=== PATIENT | male | born 1940 | race Caucasian/White ===

== ENCOUNTER 2022-07-23 11:38 | Observation (INO) | payer MEDICARE, SELFPAY ==
[2022-07-23] VITALS (11 sets, daily range): BP systolic 115–175; BP diastolic 71–117; PULSE 50–72; RESP 14–30; TEMP 35.1–37.2; O2SAT 90–97; BMI 29.8; BMI 34.6
--- NOTE | 2022-07-23 12:04 | ED_ITS ---
HPI - General Adult General Time Seen by Provider: 12:04 Date Seen: 07/23/22 Chief complaint: Shortness of Breath/Dyspnea Stated complaint: Tight artery in neck Time Seen by Provider: 07/23/22 11:40 Source: patient, family, RN notes reviewed and old records reviewed Mode of arrival: ambulatory Limitations: no limitations History of Present Illness HPI narrative: Patient is an 81-year-old male brought in with primary complaint of shortness of breath. His called family member stating that he was not doing well today. He historically is out in his garden all the time and did not even go out to the garden today. He has had some intermittent neck pain, sounds of the right is greater than left but it has been intermittent. No fevers or cough noted. He was at his [id number]'s house whom is present this weekend on Friday and he did not complain of anything. They found out from his that he has been having some shortness of breath for a couple of weeks now. He has not noted increased weight or edema. He does state his left leg will sometimes swell after he had knee surgery but it always goes down. No one has noted him being ill, he has had no complaints of it. No chest pain per se, no abdominal symptoms. Patient has never been a smoker, has never been diagnosed with lung problems such as COPD, no history of congestive heart failure or prior cardiac issues per patient and family. Related Data Allergies Allergy/AdvReac Type Severity Reaction Status Date / Time No Known Drug Allergies Allergy Verified 07/23/22 12:01 Review of Systems Status of ROS: Reports: 10 or more systems reviewed and unremarkable except as noted in History and below PFSH PFS Social History Smoking Status: Never smoker Do you use any of these nicotine containing products: None Second hand tobacco smoke exposure: Yes How often do you have a drink containing alcohol: monthly or less AUDIT-C Alcohol total score: 1 Non-prescribed substance use: denies use Exam Const: Vital Signs, click to edit/add: Vital Signs - 24 hr 07/23/22 11:49 07/23/22 12:15 07/23/22 12:34 Temperature 95.2 F L Pulse Rate [Apical ] 68 72 62 Respiratory Rate 30 H 24 24 Blood Pressure [Le ft Upper Arm] 175/110 H 146/102 H 141/102 H Pulse Oximetry 90 97 97 Oxygen Delivery Me thod Room Air Nasal Cannula Nasal Cannula Oxygen Flow Rate 4 4 07/23/22 13:30 07/23/22 14:30 Temperature Pulse Rate [Apical ] 62 55 L Respiratory Rate 25 H Blood Pressure [Le ft Upper Arm] 147/99 H 140/117 H Pulse Oximetry 95 95 Oxygen Delivery Me thod Nasal Cannula Nasal Cannula Oxygen Flow Rate 2 Documenting provider has reviewed patient's vital signs: yes Common normals: oriented x3, no limitations, healthy appearing, alert and well nourished General appearance: cooperative and in distress (Tachypneic, diaphoretic) moderate Nutritional appearance: obese HENMT: Common normals: normocephalic, head/scalp atraumatic, external ears normal, nasal mucous membranes and turbinates normal, moist oral mucous membranes, oropharynx normal, dentition normal and gingiva normal Head and scalp: normocephalic and atraumatic Nose: nasal mucous membranes and turbinates normal General ear: hearing grossly impaired (Is hard of hearing baseline per family) External ear: external ears normal Eye: Common normals: PERRL, EOMs intact bilaterally, conjunctivae normal and no scleral icterus General eye: normal appearance of both eyes Conjunctiva: conjunctiva(e) normal Pupil: PERRL Neck & C-Spine: Common normals: full ROM, no lymphadenopathy, supple, no meningeal signs and thyroid normal Thyroid: thyroid normal Other: Neck thick, difficult to assess jugular venous distension Lymph: Lymphatic: no lymphadenopathy noted Chest: Common normals: inspection of chest normal and palpation of chest normal Resp: Other: Is tachypneic, has poor air entry with distant breath sounds, prolonged expiratory phase, some diffuse but distant end-expiratory wheezing. Overall lung sounds are tight. He did get a DuoNeb and I Re auscultated after that. Posteriorly he has some basilar crackles, Still's prolonged expiratory phase and some occasional tight sounding expiratory breath sounds. Some wheezing within this. Cardio: Common normals: regular rate, regular rhythm, S1 normal heart sound, S2 normal heart sound, no gallops, no clicks and no murmurs Rate: regular rate Rhythm: regular rhythm Heart sounds: S1 normal and S2 normal GI: Common normals: Normal to inspection, nondistended, normoactive bowel sounds present, soft to palpation, non-tender, no hepatosplenomegaly, no masses and no bruits Palpation: soft and no hepatosplenomegaly Extremity: Common normals: full ROM, normal capillary refill, no joint enlargement, no clubbing, cyanosis or edema and no calf tenderness General: edema (One to 2+ pretibial pitting edema) Neuro: Common normals: oriented x3, CN's II-XII intact bilaterally, moves all extremities, no focal motor deficits, no sensory deficits noted and gait normal Sensorium/orientation: alert Meningeal signs: no meningeal signs Course Course Hospital Course: Patient was diaphoretic quite tachypneic on arrival. He was in obvious respiratory distress. Initial thoughts were COPD exacerbation, pneumonia with respiratory difficulties, cardiac issues. He was given a DuoNeb immediately, did supplement with oxygen initially but will see how he does without. Am going to try to get a portable chest x-ray quickly. Will consider IV Lasix as well. Reevaluation(s) Reevaluation #1: Patient is going to have chest CT PE protocol to better delineate what is happening. Nursing staff noted when he went to get up to go to the bathroom after 40 mg IV Lasix, coming back he was at 85-86% on room air. We will maintain him on oxygen. They did give him his 2nd DuoNeb. I think mostly the oxygen helps him. He is making a lot of urine from 40 mg IV Lasix. Chest x-ray is not definitive as far as if this could be infiltrate versus edema. He is no longer tachypneic or diaphoretic. Will do a followup troponin just to ensure no changes at appropriate time interval. Time: 14:04 Consultations Consultation #1: Have spoken with hospitalists Dr. Winkler and Dr. Francois. Will be obtaining the 3:20 p.m. troponin, Dr. Francois is the evening hospitalists and does agree to assume care. Patient is actively urinating multiple times, he is already feeling a bit better. We will need to see if he is going to require oxygen on discharge, will need updated echo and troponins followed. Vital Signs Vital signs: Initial Vital Signs Temperature 95.2 F L 07/23/22 11:49 Temperature Source Temporal Artery Scan 07/23/22 11:49 Pulse Rate 68 07/23/22 11:49 Pulse Rhythm 07/23/22 11:49 Respiratory Rate 30 H 07/23/22 11:49 Blood Pressure 175/110 H 07/23/22 11:49 Blood Pressure Mean 131 07/23/22 11:49 Pulse Oximetry 90 07/23/22 11:49 Oxygen Delivery Method 07/23/22 11:49 Vital Signs Temperature 95.2 F L 07/23/22 11:49 Pulse Rate 68 07/23/22 11:49 Respiratory Rate 30 H 07/23/22 11:49 Blood Pressure 175/110 H 07/23/22 11:49 Pulse Oximetry 90 07/23/22 11:49 Oxygen Delivery Method 07/23/22 11:49 Temperature 95.2 F L 07/23/22 11:49 Pulse Rate 55 L 07/23/22 14:30 Respiratory Rate 25 H 07/23/22 14:30 Blood Pressure 140/117 H 07/23/22 14:30 Pulse Oximetry 95 07/23/22 14:30 Oxygen Delivery Method 07/23/22 14:30 Oxygen Flow Rate 2 07/23/22 13:30 Medical Decision Making Lab Data Lab results reviewed: Yes I reviewed the patient's lab results Labs: Lab Results 07/23/22 07/23/22 07/23/22 Range/Units 12:20 12:20 12:20 WBC 8.69 (4.50-11.00) K/uL RBC 4.90 (4.30-5.90) m/uL Hgb 12.1 L (13.5-17.5) gm/dL Hct 39.9 (37.0-53.0) % MCV 81 (80-100) fL MCH 25 L (26-34) pg MCHC 30 L (32-36) gm/dL RDW Coeff of [place] 15.8 H (11.5-15.5) % Plt Count 166 (140-440) K/uL Neut % (Auto) 73.8 H (42.0-72.0) % Lymph % (Auto) 14.6 L (20-44) % [place] % (Auto) 10.2 (0.0-11.0) % Eos % (Auto) 0.8 (0.0-7.0) % Baso % (Auto) 0.5 (0.0-3.0) % Neut # (Auto) 6.40 (1.7-7.0) K/uL Lymph # (Auto) 1.30 (0.90-2.90) K/uL [place] # (Auto) 0.90 (0.00-0.90) K/UL Eos # (Auto) 0.07 (0.00-0.50) K/uL Baso # (Auto) 0.04 (0.00-0.30) K/uL Abs Immat Gran (auto) 0.01 (0.00-0.30) K/uL ESR 2 (2-15) mm/hr D-Dimer Quant (PE/DVT) 0.80 H (0.00-0.50) ug/ml Sodium (135-149) mmol/L Potassium (3.6-5.1) mmol/L Chloride (96-114) mmol/L Carbon Dioxide (20-32) mmol/L BUN (7-30) mg/dL Creatinine (0.5-1.5) mg/dL Estimated Creat Clear Estimated GFR ml/min Glucose (60-115) mg/dL Lactate (0.5-1.9) mmol/L Calcium (8.4-10.6) mg/dL Total Bilirubin (0.1-1.5) mg/dL AST (12-35) U/L ALT (4-50) U/L Alkaline Phosphatase (40-150) U/L C-Reactive Protein (0.5-1.0) mg/dL NT-Pro-B Natriuret Pep (0-450) PG/mL Total Protein (6.0-8.3) g/dL Albumin (3.3-5.0) g/dL SARS-CoV-2 (PCR) (Negative) POC Troponin I (0.01-0.04) ng/ml 07/23/22 07/23/22 07/23/22 Range/Units 12:20 12:20 12:20 WBC (4.50-11.00) K/uL RBC (4.30-5.90) m/uL Hgb (13.5-17.5) gm/dL Hct (37.0-53.0) % MCV (80-100) fL MCH (26-34) pg MCHC (32-36) gm/dL RDW Coeff of [place] (11.5-15.5) % Plt Count (140-440) K/uL Neut % (Auto) (42.0-72.0) % Lymph % (Auto) (20-44) % [place] % (Auto) (0.0-11.0) % Eos % (Auto) (0.0-7.0) % Baso % (Auto) (0.0-3.0) % Neut # (Auto) (1.7-7.0) K/uL Lymph # (Auto) (0.90-2.90) K/uL [place] # (Auto) (0.00-0.90) K/UL Eos # (Auto) (0.00-0.50) K/uL Baso # (Auto) (0.00-0.30) K/uL Abs Immat Gran (auto) (0.00-0.30) K/uL ESR (2-15) mm/hr D-Dimer Quant (PE/DVT) (0.00-0.50) ug/ml Sodium 137 (135-149) mmol/L Potassium 4.6 (3.6-5.1) mmol/L Chloride 103 (96-114) mmol/L Carbon Dioxide 23 (20-32) mmol/L BUN 28 (7-30) mg/dL Creatinine 1.1 (0.5-1.5) mg/dL Estimated Creat Clear 49.24 Estimated GFR 67 ml/min Glucose 164 H (60-115) mg/dL Lactate 1.0 (0.5-1.9) mmol/L Calcium 9.1 (8.4-10.6) mg/dL Total Bilirubin 0.4 (0.1-1.5) mg/dL AST 105 H (12-35) U/L ALT 136 H (4-50) U/L Alkaline Phosphatase 85 (40-150) U/L C-Reactive Protein < 0.5 L (0.5-1.0) mg/dL NT-Pro-B Natriuret Pep 1660 H (0-450) PG/mL Total Protein 7.0 (6.0-8.3) g/dL Albumin 4.4 (3.3-5.0) g/dL SARS-CoV-2 (PCR) (Negative) POC Troponin I 0.01 (0.01-0.04) ng/ml 08/23/22 08/23/22 Range/Units 12:25 15:15 WBC (4.50-11.00) K/uL RBC (4.30-5.90) m/uL Hgb (13.5-17.5) gm/dL Hct (37.0-53.0) % MCV (80-100) fL MCH (26-34) pg MCHC (32-36) gm/dL RDW Coeff of [place] (11.5-15.5) % Plt Count (140-440) K/uL Neut % (Auto) (42.0-72.0) % Lymph % (Auto) (20-44) % [place] % (Auto) (0.0-11.0) % Eos % (Auto) (0.0-7.0) % Baso % (Auto) (0.0-3.0) % Neut # (Auto) (1.7-7.0) K/uL Lymph # (Auto) (0.90-2.90) K/uL [place] # (Auto) (0.00-0.90) K/UL Eos # (Auto) (0.00-0.50) K/uL Baso # (Auto) (0.00-0.30) K/uL Abs Immat Gran (auto) (0.00-0.30) K/uL ESR (2-15) mm/hr D-Dimer Quant (PE/DVT) (0.00-0.50) ug/ml Sodium (135-149) mmol/L Potassium (3.6-5.1) mmol/L Chloride (96-114) mmol/L Carbon Dioxide (20-32) mmol/L BUN (7-30) mg/dL Creatinine (0.5-1.5) mg/dL Estimated Creat Clear Estimated GFR ml/min Glucose (60-115) mg/dL Lactate (0.5-1.9) mmol/L Calcium (8.4-10.6) mg/dL Total Bilirubin (0.1-1.5) mg/dL AST (12-35) U/L ALT (4-50) U/L Alkaline Phosphatase (40-150) U/L C-Reactive Protein (0.5-1.0) mg/dL NT-Pro-B Natriuret Pep (0-450) PG/mL Total Protein (6.0-8.3) g/dL Albumin (3.3-5.0) g/dL SARS-CoV-2 (PCR) Negative SARS-CoV-2 (Negative) POC Troponin I 0.01 (0.01-0.04) ng/ml Imaging Data Chest x-ray: Attestation: I have reviewed the pertinent imaging results. My impression: Chest x-ray my preliminary read with possible pulmonary venous congestion. Radiologist's impression: Patient: BLAKE MCGOWAN Facility:?[facility], [place] Patient ID:?[id number] Site Patient ID:?[id number]. Site :?[id number] Study:?XRay Chest port 1 view-07/23/2022 12:24:01 PM Ordering Physician:Porfirio Quintero Final Report: INDICATION: Dyspnea and wheezing COMPARISON: None TECHNIQUE: Single-view study FINDINGS: TUBES AND LINES: None. HEART AND MEDIASTINUM: Enlarged heart. LUNGS AND PLEURAL SPACES: Moderate diffuse bilateral multifocal process.Primary differential considerations are edema versus a diffuse inflammatory process. Consider atypical inflammatory process including COVID if clinically appropriate.Normal pleural spaces. OSSEOUS STRUCTURES: Age-appropriate appearance. No acute focal finding. IMPRESSION: Enlarged heart. Moderate diffuse bilateral multifocal process. Primary differentials are edema versus a diffuse inflammatory process. No pleural effusion. Dictated by José Miguel Tao MD @ 07/23/2022 1:05:06 PM (Electronic Signature) CT scan - chest: Attestation: I have reviewed the pertinent imaging results. Radiologist's impression: Patient: BLAKE MCGOWAN Facility:?[facility] [place] Patient ID:?[id number] Site Patient ID:?[id number]. Site :?[id number] Study:?CT Chest Angio PE 95cc ISOVUE 370-07/23/2022 2:24:19 PM Ordering Physician:Porfirio Quintero Final Report: INDICATION: Shortness of breath. COMPARISON: Chest radiograph 07/23/2022. TECHNIQUE: CT of the chest with 95 cc of Omnipaque 350 IV contrast. Coronal and sagittal reconstructions. 3D post processing was performed. FINDINGS: Mild cardiomegaly. Aneurysmal dilation of the ascending thoracic aorta measuring 4.6 cm in AP dimension. Coronary artery and aortic vascular calcifications. Normal caliber central pulmonary arteries. Evaluation of the pulmonary arteries is somewhat limited by motion artifact. No acute pulmonary embolism identified. Small pericardial effusion. No thoracic lymphadenopathy. The thyroid gland is normal in appearance. Moderate bilateral pleural effusions with associated compressive atelectasis. Interlobular septal thickening throughout the lungs likely due to edema. Small ground-glass opacities in the upper lobes may be infectious/inflammatory or due to edema. No pneumothorax. No pulmonary nodules identified. Diffuse bronchial wall thickening greatest in the lower lungs. No central endobronchial lesion. Probable motion artifact at the level of the gallbladder. Partially imaged low- attenuation lesions in both kidneys are likely cysts. The visualized upper abdomen is otherwise unremarkable. Sebaceous cyst in the anterior chest wall. The bones are within normal limits. IMPRESSION: 1. No acute pulmonary embolism identified, however evaluation is limited by motion artifact. 2. Mild cardiomegaly with small pericardial effusion. Aneurysmal dilation of the ascending thoracic aorta. 3. Moderate bilateral pleural effusions with evidence of interstitial edema. 4. Small ground-glass opacities in the upper lobes may be infectious/inflammatory or due to edema. Diffuse bronchial wall thickening. Please note that all CT scans at this facility use dose modulation, iterative reconstruction, and/or weight-based dosing when appropriate to reduce radiation dose to as low as reasonably achievable. Dictated by Bindu Pierre MD @ 07/23/2022 2:45:53 PM (Electronic Signature) ECG Data Attestation: I personally reviewed and interpreted this ECG as follows: (Significant artifact, sinus rhythm 74 beats per minute, left bundle branch block.) Prior ECG tracings: not available for review Critical Care Time Critical Care Time Critical Care Time: Yes Attestation: The patient required my highest level preparedness to intervene emergently and I personally spent this critical care time directly and personally managing the patient. This critical care time included: Obtaining a history; Examining the patient; Pulse oximetry; Ordering and reviewing of studies; Arranging urgent treatment with development of a management plan; Evaluation of patients response to treatment; Frequent reassessment discussions with other providers. This critical care time was performed to assess and manage the high probability of imminent life-threatening deterioration that could result in multiorgan failure. It was exclusive of separate billable procedures and treating other patients and teaching time. Total Critical Care Time in Minutes: 30 Discharge Plan Discharge Clinical Impression: Congestive heart failure, Hypoxia Patient Disposition: Admitted As Inpatient Condition: Improved Follow Up/Referrals: Provider,Not a Local [Primary Care Provider] -
--- NOTE | 2022-07-23 12:06 | CRLHL7_ITS ---
For Patients: As a result of the Century Cures Act, medical imaging exams and procedure reports are released immediately into your electronic medical record. You may view this report before your referring provider. If you have questions, please contact your health care provider. INDICATION: Dyspnea and wheezing COMPARISON: None TECHNIQUE: Single-view study FINDINGS: TUBES AND LINES: None. HEART AND MEDIASTINUM: Enlarged heart. LUNGS AND PLEURAL SPACES: Moderate diffuse bilateral multifocal process.Primary differential considerations are edema versus a diffuse inflammatory process. Consider atypical inflammatory process including COVID if clinically appropriate.Normal pleural spaces. OSSEOUS STRUCTURES: Age-appropriate appearance. No acute focal finding. IMPRESSION: Enlarged heart. Moderate diffuse bilateral multifocal process. Primary differentials are edema versus a diffuse inflammatory process. No pleural effusion. Dictated by José Miguel Tao MD @ 07/23/2022 1:05:06 PM (Electronically Signed)
[2022-07-23] MEDS: IPRAT-ALBUT 0.5-2.5 MG/3 ML NEB 1 NEB IH ×2 (12:17→13:10)
--- NOTE | 2022-07-23 12:27 | ED.NURSE ---
#18G IV established in [facility] by LESA Hussein. Labs drawn from this IV and sent to lab. EDGAR goncalves.
[2022-07-23 12:35] LABS: Basophils Absolute Auto 0.04 K/uL (0.00-0.30); Basophils Percent Auto 0.5 % (0.0-3.0); Eosinophils Absolute Auto 0.07 K/uL (0.00-0.50); Eosinophils Percent Auto 0.8 % (0.0-7.0); Hematocrit 39.9 % (37.0-53.0); Hemoglobin* 12.1 gm/dL (13.5-17.5); Immature Granulocytes Abs Auto 0.01 K/uL (0.00-0.30); Lymphocytes Percent Auto 14.6 % (20-44); Mean Corpuscular HGB Conc 30 gm/dL (32-36); Mean Corpuscular Hemoglobin 25 pg (26-34); Mean Corpuscular Volume 81 fL (80-100); Monocytes Percent Auto 10.2 % (0.0-11.0); Neutrophils Percent Auto 73.8 % (42.0-72.0); Platelet Count* 166 K/uL (140-440); RDW Coefficient of Variation % 15.8 % (11.5-15.5); Troponin, Point-of-Care* 0.01 ng/ml (0.01-0.04); White Blood Count* 8.69 K/uL (4.50-11.00)
[2022-07-23] MEDS: FUROSEMIDE 10 MG/ML inj 40 MG IVP (12:39)
[2022-07-23 12:51] LABS: Albumin* 4.4 g/dL (3.3-5.0); Chloride* 103 mmol/L (96-114); Slide Review Reflex No
[2022-07-23 12:52] LABS: Potassium* 4.6 mmol/L (3.6-5.1); Sodium* 137 mmol/L (135-149)
[2022-07-23 12:54] LABS: Alkaline Phosphatase* 85 U/L (40-150); Aspartate Amino Transferase* 105 U/L (12-35); Bilirubin Total* 0.4 mg/dL (0.1-1.5); Carbon Dioxide* 23 mmol/L (20-32); Creatinine* 1.1 mg/dL (0.5-1.5); Est. Creatinine Clearance* 49.24; Estimated Glomerular Filt Rate 67 ml/min
[2022-07-23 12:55] LABS: Alanine Aminotransferase* 136 U/L (4-50); Blood Urea Nitrogen* 28 mg/dL (7-30); Calcium* 9.1 mg/dL (8.4-10.6); Glucose* 164 mg/dL (60-115)
[2022-07-23 13:03] LABS: NT Pro B Type NatriureticPept* 1660 PG/mL (0-450)
[2022-07-23 13:05] LABS: C Reactive Protein* < 0.5 mg/dL (0.5-1.0)
--- NOTE | 2022-07-23 13:36 | CRLHL7_ITS ---
For Patients: As a result of the Century Cures Act, medical imaging exams and procedure reports are released immediately into your electronic medical record. You may view this report before your referring provider. If you have questions, please contact your health care provider. INDICATION: Shortness of breath. COMPARISON: Chest radiograph 07/23/2022. TECHNIQUE: CT of the chest with 95 cc of Omnipaque 350 IV contrast. Coronal and sagittal reconstructions. 3D post processing was performed. FINDINGS: Mild cardiomegaly. Aneurysmal dilation of the ascending thoracic aorta measuring 4.6 cm in AP dimension. Coronary artery and aortic vascular calcifications. Normal caliber central pulmonary arteries. Evaluation of the pulmonary arteries is somewhat limited by motion artifact. No acute pulmonary embolism identified. Small pericardial effusion. No thoracic lymphadenopathy. The thyroid gland is normal in appearance. Moderate bilateral pleural effusions with associated compressive atelectasis. Interlobular septal thickening throughout the lungs likely due to edema. Small ground-glass opacities in the upper lobes may be infectious/inflammatory or due to edema. No pneumothorax. No pulmonary nodules identified. Diffuse bronchial wall thickening greatest in the lower lungs. No central endobronchial lesion. Probable motion artifact at the level of the gallbladder. Partially imaged low-attenuation lesions in both kidneys are likely cysts. The visualized upper abdomen is otherwise unremarkable. Sebaceous cyst in the anterior chest wall. The bones are within normal limits. IMPRESSION: 1. No acute pulmonary embolism identified, however evaluation is limited by motion artifact. 2. Mild cardiomegaly with small pericardial effusion. Aneurysmal dilation of the ascending thoracic aorta. 3. Moderate bilateral pleural effusions with evidence of interstitial edema. 4. Small ground-glass opacities in the upper lobes may be infectious/inflammatory or due to edema. Diffuse bronchial wall thickening. Please note that all CT scans at this facility use dose modulation, iterative reconstruction, and/or weight-based dosing when appropriate to reduce radiation dose to as low as reasonably achievable. Dictated by Bindu Pierre MD @ 07/23/2022 2:45:53 PM (Electronically Signed)
[2022-07-23 14:02] LABS: SARS PCR* Negative SARS-CoV-2 (Negative)
[2022-07-23 14:27] LABS: Erythrocyte SedimentationRate* 2 mm/hr (2-15)
[2022-07-23 15:37] LABS: Troponin, Point-of-Care* 0.01 ng/ml (0.01-0.04)
--- NOTE | 2022-07-23 17:28 | PM.IMHP1 ---
Hospitalist- H&P: HPI History of Present Illness Date Seen: 07/23/22 Chief complaint: Tight artery in neck Narrative: Kota Canas is a 81 year old male who presents with several days of shortness of breath. Pt has no history of coronary disease. Today the shortness of breath which has been on exertion only became worse. The pt was brought to the emergency room tachypnic and mildly hypoxic. Pt was treated with supplemental oxygen and was found to have mild pulmonary edema on both chest x ray and CT of the chest. No signs of pneumonia or pulmonary embolism were noted. Pt was treated with IV lasix 40 mg with a good outpt and the pt's tachypnea and mild hypoxia both resolved. He also received duonebs. Pt is now breathing comfortably on room air. No chest pain. Pt does have chronic L sided neck pain dating back to a CVA in 2003. EKG upon arrival in the ED does show a left bundle branch block. No previous EKGs available for comparison but pt did have an echocardiogram in March 2019 showing EF of 61% with Severe Concentric LVH as well as Mild and trivial TR. Pt has had two negative troponin and has otherwise been stable on telemetry. BNP 1660. Review of Systems Status of ROS: Reports: 10 or more systems reviewed and unremarkable except as noted in History and below [facility] Medical History (Updated 07/23/22 @ 18:10 by Jun Francois MD) Abnormal LFTs Anemia Congestive heart failure CVA (cerebral vascular accident) Dilatation of thoracic aorta Hyperlipidemia Hyperlipidemia Hypertension Hypertension Left bundle branch block Pericardial effusion Peripheral vascular disease Retinal artery occlusion Stroke Surgical History H/O carotid endarterectomy History of knee replacement Social History Highest level of school completed/degree received: high school graduate Smoking Status: Never smoker Do you use any of these nicotine containing products: None Second hand tobacco smoke exposure: Yes How often do you have a drink containing alcohol: monthly or less AUDIT-C Alcohol total score: 1 Non-prescribed substance use: denies use Caffeine: Yes (4-5 cups a day) service: Yes Meds Home Medications and Allergies Home Medications Medication Instructions Recorded Confirmed Type metoprolol tartrate 50 mg tablet 50 mg PO BID 07/23/22 07/23/22 History (Lopressor) Home Medication Comments: Pt not sure of his home medications but review of his records show that he previously has been taking Atorvastatin 40 mg daily, Metoprolol 50 mg BID, Lisinopril/HCTZ 20/25 daily, Aspirin 81 mg daily and Doxasozin 4 mg daily Allergies Allergy/AdvReac Type Severity Reaction Status Date / Time No Known Drug Allergies Allergy Verified 07/23/22 12:01 Exam Narrative: Exam Narrative: EXAM GENERAL: Patient appears comfortable and well. Slight slurred speech from previous CVA. EYES: No scleral icterus. ENT: Tympanic membranes and oropharynx normal. Neck does show a previous carotid endarterectomy incision well healed on the right. THYROID: no thyroid nodules or thyromegaly. LYMPH: No supraclavicular or cervical lymphadenopathy. SKIN: Visible skin seen during exam normal or with benign process only. EXT: Trace lower extremity edema bilaterally. HEART: Regular rate and rhythm with no murmurs, rubs, or gallops. LUNGS: Minimal crackles bilaterally. ABD: Soft, non tender, non distended. PSYCH: Good eye contact, speech is not pressured. Const: Vital Signs, click to edit/add: Vital Signs - 24 hr 07/23/22 11:49 07/23/22 12:15 07/23/22 12:34 Temperature 95.2 F L Pulse Rate [Apical ] 68 72 62 Pulse Rate [Right Radial] Respiratory Rate 30 H 24 24 Blood Pressure [Le ft Upper Arm] 175/110 H 146/102 H 141/102 H Blood Pressure [Ri ght Arm] Pulse Oximetry 90 97 97 Oxygen Delivery Me thod Room Air Nasal Cannula Nasal Cannula Oxygen Flow Rate 4 4 07/23/22 13:30 07/23/22 14:30 07/23/22 16:15 Temperature Pulse Rate [Apical ] 62 55 L 61 Pulse Rate [Right Radial] Respiratory Rate 25 H 14 Blood Pressure [Le ft Upper Arm] 147/99 H 140/117 H 121/85 Blood Pressure [Ri ght Arm] Pulse Oximetry 95 95 95 Oxygen Delivery Me thod Nasal Cannula Nasal Cannula Room Air Oxygen Flow Rate 2 07/23/22 17:21 Temperature 99.0 F Pulse Rate [Apical ] Pulse Rate [Right Radial] 60 Respiratory Rate 20 Blood Pressure [Le ft Upper Arm] Blood Pressure [Ri ght Arm] 142/71 H Pulse Oximetry 95 Oxygen Delivery Me thod Room Air Oxygen Flow Rate Hospitalist - H&P: Result Labs Labs: Short CBC 07/23/22 Range/Units 12:20 WBC 8.69 (4.50-11.00) K/uL Hgb 12.1 L (13.5-17.5) gm/dL Hct 39.9 (37.0-53.0) % Plt Count 166 (140-440) K/uL BMP 07/23/22 12:20 Sodium 137 Potassium 4.6 Chloride 103 Carbon Dioxide 23 BUN 28 Creatinine 1.1 Glucose 164 H Calcium 9.1 Liver Function 07/23/22 Range/Units 12:20 Total Bilirubin 0.4 (0.1-1.5) mg/dL AST 105 H (12-35) U/L ALT 136 H (4-50) U/L Alkaline Phosphatase 85 (40-150) U/L Albumin 4.4 (3.3-5.0) g/dL ECG Interpretation: LBBB no other acute abnormalities Imaging CT scan - chest: Radiologist's impression: No pulmonary emboli Findings consistent with Pulmonary Edema Small Glass Opacities in the upper lobes Chest x-ray: Radiologist's impression: Cardiomegaly with pulmonary edema Assessment and Plan Assessment and plan (1) Congestive heart failure: Status: Acute Assessment and Plan: Pt has concerning findings on Echo from 2019. Pt diuresed well with 40 mg of IV Lasix. Will give an additional 20 mg orally now and observe outpt. Will place on a low sodium diet and follow I and O and Daily Wt. Pt's pulse is 60. Would not give any further betablocker tonight but did write for continuation in the am. Echocardiogram ordered. Pt tells me that he previously was on Lisinopril/HCTZ but has stopped it. We will see what his echo shows. Will place on tele and monitor his oxygen needs which are currently at Room Air. Repat CBC, CMP and BNP in the am. Continue ASA 81 mg daily. Pt is to be a full code. There are some Ground Glass Opacities in the upper lobes on CT. I do not believe these are infectious given his presentation and his normal WBC but will collect BC times two (2) Abnormal LFTs: Status: Chronic Assessment and Plan: Pt may have increased his LFTs due to mild fluid overload. I did note normal LFT's in 2019. Will repeat CMP in the am and consider ultrasound. Pt having no abd symptoms and no change in stools. (3) Left bundle branch block: Status: Chronic Assessment and Plan: I suspect that this is chronic but am unable to find any old EKG's for comparison. Pt has had two negative troponins and we will obtain a third. Pt will be placed on tele and will have an echo in the am. (4) Pericardial effusion: Status: Acute Assessment and Plan: No signs of cardiact tamponade. Will monitor vitals and plan for echo in the am. (5) Dilatation of thoracic aorta: Status: Acute Assessment and Plan: No signs of acute disection. Echo in the am. (6) Hypertension: Status: Chronic Assessment and Plan: Continue Metoprolol and follow up on echo results. (7) Hyperlipidemia: Status: Chronic Assessment and Plan: Continue Atorvastatin (8) Anemia: Status: Chronic Assessment and Plan: Stable dating back to 2019. Repeat CBC in am.
--- NOTE | 2022-07-23 17:29 | ED.NURSE ---
Pt transferred to M/S via w/c on , tolerated well. Updated daughter, America, with Pt status and M/S room, contact # for M/S nurse's station.
[2022-07-23] MEDS: FUROSEMIDE 40 MG TABLET 20 MG PO (19:01)
[2022-07-23 19:22] LABS: Magnesium* 1.9 mg/dL (1.5-2.6)
[2022-07-23 19:58] LABS: Troponin I* < 0.01 ng/mL (0.01-0.04)
[2022-07-23] MEDS: ATORVASTATIN CALCIUM 40 MG TABLET PO (21:37)
[2022-07-23] MEDS: METOPROLOL TARTRATE 50 MG TABLET PO (21:37)
--- NOTE | 2022-07-23 22:20 | PC.NURSE ---
Shift note; The pt has been pleasant and cooperative. Alert and oriented to self, place, and situations. He has been very hard of hearing- doesn't use hearing aid. The pt has been denying chest pain and short of breath at rest. The pt reported mild short of breath with exertion. The pt has been in RA with Spo2 in low 90s. The pt has been denying any pain or distress. Up ad nas. Using urinal
--- NOTE | 2022-07-24 06:12 | PC.NURSE ---
Shift Note : Pt pleasant and cooperative, VSS, afebrile, denies pain, LS dim with slight crackles in bilateral bases. Pt up ad nas in the room, denies SOB or dizziness.
[2022-07-24 07:00] VITALS: PULSE 53; RESP 18
[2022-07-24 07:11] LABS: Basophils Absolute Auto 0.04 K/uL (0.00-0.30); Basophils Percent Auto 0.5 % (0.0-3.0); Eosinophils Absolute Auto 0.15 K/uL (0.00-0.50); Hematocrit 36.8 % (37.0-53.0); Hemoglobin* 11.2 gm/dL (13.5-17.5); Immature Granulocytes Abs Auto 0.01 K/uL (0.00-0.30); Lymphocytes Absolute Auto 1.74 K/uL (0.90-2.90); Lymphocytes Percent Auto 23.1 % (20-44); Mean Corpuscular HGB Conc 30 gm/dL (32-36); Mean Corpuscular Hemoglobin 25 pg (26-34); Mean Corpuscular Volume 81 fL (80-100); Monocytes Percent Auto 13.7 % (0.0-11.0); Neutrophils Absolute Auto 4.56 K/uL (1.7-7.0); Neutrophils Percent Auto 60.6 % (42.0-72.0); Platelet Count* 143 K/uL (140-440); RDW Coefficient of Variation % 15.8 % (11.5-15.5); Red Blood Count 4.55 m/uL (4.30-5.90); White Blood Count* 7.53 K/uL (4.50-11.00)
[2022-07-24 07:31] LABS: Slide Review Reflex No
[2022-07-24 07:38] VITALS: BP 85/69; PULSE 56; RESP 18; TEMP 36.4; O2SAT 93
[2022-07-24 07:42] LABS: NT Pro B Type NatriureticPept* 1670 PG/mL (0-450)
[2022-07-24 07:56] VITALS: BP 143/76; PULSE 35
[2022-07-24 08:04] VITALS: BP 142/80
[2022-07-24 08:36] LABS: Chloride* 101 mmol/L (96-114); Sodium* 139 mmol/L (135-149)
[2022-07-24 08:39] LABS: Carbon Dioxide* 30 mmol/L (20-32); Est. Creatinine Clearance* 54.17; Estimated Glomerular Filt Rate 76 ml/min
[2022-07-24 08:40] LABS: Blood Urea Nitrogen* 26 mg/dL (7-30); Calcium* 9.1 mg/dL (8.4-10.6); Glucose* 116 mg/dL (60-115)
[2022-07-24] MEDS: TORSEMIDE 20 MG TABLET PO (08:42)
[2022-07-24] MEDS: ASPIRIN 81 MG TABLET EC PO (08:42)
[2022-07-24] MEDS: METOPROLOL TARTRATE 50 MG TABLET PO (08:42)
--- NOTE | 2022-07-24 10:11 | P.DS_ITS ---
DS: Providers Provider Date Seen: 07/24/22 Date of admission: 07/23/22 17:06 Primary care physician: Not a Local Provider Admitting Clinician: Jun Francois MD Attending Physician on discharge: Jun Francois MD Date of Discharge: 07/24/22 DS: Diagnosis Discharge Diagnosis (1) Congestive heart failure: Status: Acute Problem details: History of severe concentric LVH with heart failure with preserved ejection fraction. Current echo is pending. Clinically much better with diuresis overnight. Needs outpatient follow-up of dyspnea, volume status, electrolytes (2) LVH (left ventricular hypertrophy): Status: Acute Problem details: severe LVH on echo from March 2019 (3) Hypertension: Status: Chronic Problem details: Blood pressure has been fairly well-controlled here. Needs close outpatient follow-up in the context of LVH. (4) Anemia: Status: Chronic Problem details: No workup is done on this problem on this admission. (5) Medically noncompliant: Status: Acute Problem details: Patient has been not taking previously prescribed medications for blood pressure and hypertensive heart disease. He has not had regular medical follow-up in the last couple years. He left his previous physician because that physician had referred him to Cardiology for his heart disease, urology for his elevated PSA and urinary symptoms and suggested evaluation for sleep apnea and colonoscopy. Patient tells me that he did not want to deal with all these specialty consultations. In addition he has mild anemia which has not been evaluated. DS: Summary Hospital Course Hospital Course: 81-year-old male admitted to the hospital with dyspnea. Time of admission he was diaphoretic and hypoxic. Chest x-ray and chest CT showed evidence of pulmonary edema and small pleural effusions. With diuresis he reports his breathing is better, now back to normal. He is very anxious to go home. Status at Discharge Functional status at discharge: independent ambulation Overall status at discharge: patient is back to baseline Time Spent with Patient Time attestation: Total time spent providing and/or coordinating discharge services: 50 minutes Time spent: Greater than 30 minutes Exam Const: Vital Signs, click to edit/add: Vital Signs - 24 hr 07/23/22 11:49 07/23/22 12:15 07/23/22 12:34 Temperature 95.2 F L Pulse Rate Pulse Rate [Apical ] 68 72 62 Pulse Rate [Right Radial] Respiratory Rate 30 H 24 24 Blood Pressure [Le ft Upper Arm] 175/110 H 146/102 H 141/102 H Blood Pressure [Ri ght Arm] Pulse Oximetry 90 97 97 Oxygen Delivery Me thod Room Air Nasal Cannula Nasal Cannula Oxygen Flow Rate 4 4 07/23/22 13:30 07/23/22 14:30 07/23/22 16:15 Temperature Pulse Rate Pulse Rate [Apical ] 62 55 L 61 Pulse Rate [Right Radial] Respiratory Rate 25 H 14 Blood Pressure [Le ft Upper Arm] 147/99 H 140/117 H 121/85 Blood Pressure [Ri ght Arm] Pulse Oximetry 95 95 95 Oxygen Delivery Me thod Nasal Cannula Nasal Cannula Room Air Oxygen Flow Rate 2 07/23/22 17:21 07/23/22 18:38 07/23/22 20:06 Temperature 99.0 F 97.9 F Pulse Rate Pulse Rate [Apical ] Pulse Rate [Right Radial] 60 59 L Respiratory Rate 20 20 Blood Pressure [Le ft Upper Arm] Blood Pressure [Ri ght Arm] 142/71 H 133/73 Pulse Oximetry 95 91 Oxygen Delivery Me thod Room Air Room Air Room Air Oxygen Flow Rate 07/23/22 23:38 07/23/22 23:00 07/23/22 23:00 Temperature 97.5 F L Pulse Rate 54 L Pulse Rate [Apical ] Pulse Rate [Right Radial] 50 L 50 L Respiratory Rate 20 20 Blood Pressure [Le ft Upper Arm] Blood Pressure [Ri ght Arm] 115/79 Pulse Oximetry 90 Oxygen Delivery Me thod Room Air Oxygen Flow Rate 07/23/22 23:36 07/24/22 07:38 07/24/22 07:00 Temperature 97.6 F Pulse Rate Pulse Rate [Apical ] Pulse Rate [Right Radial] 56 L Respiratory Rate 18 18 Blood Pressure [Le ft Upper Arm] Blood Pressure [Ri ght Arm] 85/69 L Pulse Oximetry 90 93 Oxygen Delivery Me thod Room Air Room Air Oxygen Flow Rate 07/24/22 07:56 07/24/22 08:04 07/24/22 07:00 Temperature Pulse Rate 53 L Pulse Rate [Apical ] Pulse Rate [Right Radial] 35 L Respiratory Rate Blood Pressure [Le ft Upper Arm] Blood Pressure [Ri ght Arm] 143/76 H 142/80 H Pulse Oximetry Oxygen Delivery Me thod Oxygen Flow Rate DS: Data Data Completed and Pending Labs on day of discharge: Labs from last 24 hours 07/24/22 07/24/22 07/23/22 06:12 06:12 18:52 WBC 7.53 RBC 4.55 Hgb 11.2 L Hct 36.8 L MCV 81 MCH 25 L MCHC 30 L RDW Coeff of [place] 15.8 H Plt Count 143 Neut % (Auto) 60.6 Lymph % (Auto) 23.1 [place] % (Auto) 13.7 H Eos % (Auto) 2.0 Baso % (Auto) 0.5 Neut # (Auto) 4.56 Lymph # (Auto) 1.74 [place] # (Auto) 1.00 H Eos # (Auto) 0.15 Baso # (Auto) 0.04 Abs Immat Gran (auto) 0.01 ESR D-Dimer Quant (PE/DVT) Sodium 139 Potassium 4.0 Chloride 101 Carbon Dioxide 30 BUN 26 Creatinine 1.0 Estimated Creat Clear 54.17 Estimated GFR 76 Glucose 116 H Lactate Calcium 9.1 Magnesium Total Bilirubin AST ALT Alkaline Phosphatase Troponin I < 0.01 L C-Reactive Protein NT-Pro-B Natriuret Pep 1670 H Total Protein Albumin SARS-CoV-2 (PCR) POC Troponin I 07/23/22 07/23/22 07/23/22 15:15 12:25 12:20 WBC RBC Hgb Hct MCV MCH MCHC RDW Coeff of [place] Plt Count Neut % (Auto) Lymph % (Auto) [place] % (Auto) Eos % (Auto) Baso % (Auto) Neut # (Auto) Lymph # (Auto) [place] # (Auto) Eos # (Auto) Baso # (Auto) Abs Immat Gran (auto) ESR D-Dimer Quant (PE/DVT) Sodium Potassium Chloride Carbon Dioxide BUN Creatinine Estimated Creat Clear Estimated GFR Glucose Lactate Calcium Magnesium Total Bilirubin AST ALT Alkaline Phosphatase Troponin I C-Reactive Protein NT-Pro-B Natriuret Pep Total Protein Albumin SARS-CoV-2 (PCR) Negative SARS-CoV-2 POC Troponin I 0.01 0.01 07/23/22 07/23/22 07/23/22 12:20 12:20 12:20 WBC RBC Hgb Hct MCV MCH MCHC RDW Coeff of [place] Plt Count Neut % (Auto) Lymph % (Auto) [place] % (Auto) Eos % (Auto) Baso % (Auto) Neut # (Auto) Lymph # (Auto) [place] # (Auto) Eos # (Auto) Baso # (Auto) Abs Immat Gran (auto) ESR D-Dimer Quant (PE/DVT) 0.80 H Sodium 137 Potassium 4.6 Chloride 103 Carbon Dioxide 23 BUN 28 Creatinine 1.1 Estimated Creat Clear 49.24 Estimated GFR 67 Glucose 164 H Lactate 1.0 Calcium 9.1 Magnesium 1.9 Total Bilirubin 0.4 AST 105 H ALT 136 H Alkaline Phosphatase 85 Troponin I C-Reactive Protein < 0.5 L NT-Pro-B Natriuret Pep 1660 H Total Protein 7.0 Albumin 4.4 SARS-CoV-2 (PCR) POC Troponin I 07/23/22 07/23/22 12:20 12:20 WBC 8.69 RBC 4.90 Hgb 12.1 L Hct 39.9 MCV 81 MCH 25 L MCHC 30 L RDW Coeff of [place] 15.8 H Plt Count 166 Neut % (Auto) 73.8 H Lymph % (Auto) 14.6 L [place] % (Auto) 10.2 Eos % (Auto) 0.8 Baso % (Auto) 0.5 Neut # (Auto) 6.40 Lymph # (Auto) 1.30 [place] # (Auto) 0.90 Eos # (Auto) 0.07 Baso # (Auto) 0.04 Abs Immat Gran (auto) 0.01 ESR 2 D-Dimer Quant (PE/DVT) Sodium Potassium Chloride Carbon Dioxide BUN Creatinine Estimated Creat Clear Estimated GFR Glucose Lactate Calcium Magnesium Total Bilirubin AST ALT Alkaline Phosphatase Troponin I C-Reactive Protein NT-Pro-B Natriuret Pep Total Protein Albumin SARS-CoV-2 (PCR) POC Troponin I Imaging CT scan - chest: Radiologist's impression: [place] [address] Diagnostic Imaging Report Patient: Kota Canas MR#: [id number] : 1940 Acct:[id number] Loc: ED Service Date: 07/23/[address]: Ordering Physician: Ingrid Longo M.D. Date of Service: 07/23/22 Procedure(s): CT angio chest PE protocol Accession Number(s): [id number] cc: Provider,Not a Local ; Ingrid Longo M.D.~ For Patients:? As a result of the Century Cures Act, medical imaging exams and procedure reports are released immediately into your electronic medical record.? You may view this report before your referring provider.? If you have questions, please contact your health care provider. INDICATION: Shortness of breath. COMPARISON: Chest radiograph 07/23/2022. TECHNIQUE: CT of the chest with 95 cc of Omnipaque 350 IV contrast. Coronal and sagittal reconstructions. 3D post processing was performed. FINDINGS: Mild cardiomegaly. Aneurysmal dilation of the ascending thoracic aorta measuring 4.6 cm in AP dimension. Coronary artery and aortic vascular calcifications. Normal caliber central pulmonary arteries. Evaluation of the pulmonary arteries is somewhat limited by motion artifact. No acute pulmonary embolism identified. Small pericardial effusion. No thoracic lymphadenopathy. The thyroid gland is normal in appearance. Moderate bilateral pleural effusions with associated compressive atelectasis. Interlobular septal thickening throughout the lungs likely due to edema. Small ground-glass opacities in the upper lobes may be infectious/inflammatory or due to edema. No pneumothorax. No pulmonary nodules identified. Diffuse bronchial wall thickening greatest in the lower lungs. No central endobronchial lesion. Probable motion artifact at the level of the gallbladder. Partially imaged low-attenuation lesions in both kidneys are likely cysts. The visualized upper abdomen is otherwise unremarkable. Sebaceous cyst in the anterior chest wall. The bones are within normal limits. IMPRESSION: 1. No acute pulmonary embolism identified, however evaluation is limited by motion artifact. 2. Mild cardiomegaly with small pericardial effusion. Aneurysmal dilation of the ascending thoracic aorta. 3. Moderate bilateral pleural effusions with evidence of interstitial edema. 4. Small ground-glass opacities in the upper lobes may be infectious/inflammatory or due to edema. Diffuse bronchial wall thickening. Please note that all CT scans at this facility use dose modulation, iterative reconstruction, and/or weight-based dosing when appropriate to reduce radiation dose to as low as reasonably achievable. Dictated by Bindu Pierre MD @ 07/23/2022 2:45:53 PM Discharge Plan Discharge Disposition: Home, Self-Care Date of Admission: 07/23/22 17:06 Attending Provider on Discharge: Yomi Matson Primary Care Provider: Provider,Not a Local Condition: Improved Anticipated Discharge Date/Time: 07/24/22 16:00 Discharge Medications: New atorvastatin [Lipitor] 40 mg Tablet 40 mg PO HS Qty: 30 0RF potassium chloride 10 mEq Capsule, Extended Release 10 meq PO DAILY Qty: 30 0RF torsemide 20 mg Tablet 20 mg PO DAILY Qty: 30 0RF aspirin 81 mg Tablet,Delayed Release (Dr/Ec) 81 mg PO DAILY Qty: 100 0RF Continued metoprolol tartrate [Lopressor] 50 mg tablet 50 mg PO BID Discharge Orders: Discharge Order (Routine); Ordered 07/24/22 Ordered By: Yomi Matson Activity Restrictions/Additional Instructions: Check your weight every day at the same time of day. If your weight increases 2 lb in 1 day or 3 lb in a week call your doctor. Monitor for worsening symptoms of heart failure including worsening shortness of breath with activity or worsening shortness of breath when you lie down at night. See your doctor next week for recheck of your breathing, your blood pressure, your electrolytes and kidney function. As your previous Discussed with you there are a number of health concerns that may benefit from further evaluation. You can decide if you want to follow through with those as well. Activity Level: No Restrictions Discharge Diet: 2 gm Sodium Follow Up Appointments: Provider,Not a Local [Primary Care Provider] - (See your doctor next week to check your breathing, your blood test for your electrolytes and kidney function, your blood pressure and other health concerns) Forms: [employer] Info Instructions
[2022-07-24] MEDS: POTASSIUM CHLORIDE 10 MEQ CAPSULE ER PO (10:51)
[2022-07-24 11:15] VITALS: BP 126/73; PULSE 58; RESP 20; TEMP 36.3; O2SAT 92
--- NOTE | 2022-07-24 11:50 | NUTR.NU ---
RDN attempted to visit with patient x2, patient was unavailable on both attempts. RDN attempted to visit to provide diet education related to CHF. Patient was not available x2. RDN recommends patient follow-up as an outpatient for diet education.
--- NOTE | 2022-07-24 14:52 | PC.NURSE ---
End of Shift: Patient pleasant and cooperative. Patient is vitally stable, lungs with fine crackles, BS WNL, IV removed, catheter intact. Patient is independent in room. Patient denied any pain. Patient tolerating regular diet, urinating, and had 1 mod formed BM. Patient currently awaiting ECHO results to then be discharged.
== END 2022-07-24 16:08 | disposition home or self-care (01) ==
LOC: ED 15:48 → MEDSURG 17:06
PROVIDERS: Family Medicine; Admitting Provider Internal Medicine; Emergency Provider Family Medicine; Visit Provider Internal Medicine
DX: I50.23 Acute on chronic systolic (congestive) heart failure (principal); I11.0 Hypertensive heart disease with heart failure; R09.02 Hypoxemia; I31.3 Pericardial effusion (noninflammatory); I77.810 Thoracic aortic ectasia; J81.1 Chronic pulmonary edema; J90 Pleural effusion, not elsewhere classified; E78.5 Hyperlipidemia, unspecified; R79.89 Other specified abnormal findings of blood chemistry; I44.7 Left bundle-branch block, unspecified; D64.9 Anemia, unspecified; Z86.79 Personal history of other diseases of the circulatory system; I42.2 Other hypertrophic cardiomyopathy; Z91.14 Patient's other noncompliance with medication regimen; R06.82 Tachypnea, not elsewhere classified; R61 Generalized hyperhidrosis; G89.29 Other chronic pain; M54.2 Cervicalgia; Z79.01 Long term (current) use of anticoagulants; R01.1 Cardiac murmur, unspecified
CPT/HCPCS: 36415; 71045; 71260; 80048; 80053; 83605; 83735; 83880; 84484; 85025; 85379; 85651; 86140; 87040; 87635; 93005; 93306; 94640; 96374; 99284; 99285; 99291; G0378; A9270; J1940; Q9967

== ENCOUNTER 2022-07-29 15:35 | Outpatient (CLI) | payer MEDICARE, SELFPAY ==
[2022-07-29 16:01] LABS: Chloride Point of Care* 101 mmol/L (98-109); Sodium Point of Care* 140 mmol/L (138-146)
[2022-07-29 16:02] LABS: Basophils Absolute Auto 0.02 K/uL (0.00-0.30); Basophils Percent Auto 0.2 % (0.0-3.0); Blood Urea Nitrogen POC* 37 mg/dl (8-26); Carbon Dioxide Point of Care* 28 mmol/L (20-32); Creatinine Point of Care* 1.5 mg/dl (0.6-1.3); Eosinophils Absolute Auto 0.28 K/uL (0.00-0.50); Eosinophils Percent Auto 3.2 % (0.0-7.0); Glucose IStat Point of Care 117 mg/dl (60-115); Hematocrit 38.5 % (37.0-53.0); Hemoglobin* 11.9 gm/dL (13.5-17.5); Ionized Calcium Point of Care* 1.22 mmol/L (1.11-1.33); Lymphocytes Absolute Auto 1.98 K/uL (0.90-2.90); Lymphocytes Percent Auto 22.5 % (20-44); Mean Corpuscular HGB Conc 31 gm/dL (32-36); Mean Corpuscular Hemoglobin 25 pg (26-34); Mean Corpuscular Volume 80 fL (80-100); Monocytes Percent Auto 15.7 % (0.0-11.0); Neutrophils Absolute Auto 5.15 K/uL (1.7-7.0); Neutrophils Percent Auto 58.4 % (42.0-72.0); Platelet Count* 174 K/uL (140-440); Red Blood Count 4.79 m/uL (4.30-5.90); White Blood Count* 8.81 K/uL (4.50-11.00)
[2022-07-29 16:08] LABS: Slide Review Reflex No
[2022-07-29 16:21] LABS: Hemoglobin A1C* 6.3 % (0-5.6)
[2022-07-29 21:24] LABS: Albumin* 4.2 g/dL (3.3-5.0)
[2022-07-29 21:27] LABS: Alanine Aminotransferase* 30 U/L (4-50); Alkaline Phosphatase* 84 U/L (40-150); Aspartate Amino Transferase* 19 U/L (12-35); Bilirubin Direct* 0.3 mg/dL (0.0-0.5); Bilirubin Total* 0.3 mg/dL (0.1-1.5); Total Protein* 6.8 g/dL (6.0-8.3)
[2022-07-29 21:54] LABS: PSA Screen* 3.68 ng/mL (0.10-4.00)
== END 2022-07-29 15:36 | disposition home or self-care (01) ==
PROVIDERS: Visit Provider Family Medicine
DX: R79.89 Other specified abnormal findings of blood chemistry (principal); N40.0 Benign prostatic hyperplasia without lower urinary tract symptoms; I50.9 Heart failure, unspecified; I10 Essential (primary) hypertension; D64.9 Anemia, unspecified; E78.5 Hyperlipidemia, unspecified
CPT/HCPCS: 80076; 83036; 84153; 85025

== ENCOUNTER 2022-08-23 11:49 | Outpatient (CLI) | payer MEDICARE, SELFPAY ==
[2022-08-23 12:58] LABS: Cholesterol* 85 mg/dL (90-199); HDL Cholesterol* 35 mg/dL (>=40); LDL Cholesterol Calculated 33 mg/dL (<100); Triglycerides* 84 mg/dL (40-149)
[2022-08-23 13:07] LABS: NT Pro B Type NatriureticPept* 886 PG/mL (0-450)
== END 2022-08-23 11:50 | disposition home or self-care (01) ==
PROVIDERS: Visit Provider Internal Medicine Cardiovascular Disease
DX: I50.9 Heart failure, unspecified (principal); R79.89 Other specified abnormal findings of blood chemistry; I10 Essential (primary) hypertension
CPT/HCPCS: 80061; 83880

== ENCOUNTER 2022-08-30 14:19 | Outpatient (CLI) | payer MEDICARE, SELFPAY ==
[2022-08-30 22:02] LABS: Albumin* 4.3 g/dL (3.3-5.0)
[2022-08-30 22:04] LABS: Cholesterol* 83 mg/dL (90-199)
[2022-08-30 22:05] LABS: Alanine Aminotransferase* 18 U/L (4-50); Alkaline Phosphatase* 79 U/L (40-150); Aspartate Amino Transferase* 19 U/L (12-35); Bilirubin Direct* 0.2 mg/dL (0.0-0.5); Bilirubin Total* 0.2 mg/dL (0.1-1.5); HDL Cholesterol* 29 mg/dL (>=40); LDL Cholesterol Calculated 24 mg/dL (<100); Total Protein* 6.7 g/dL (6.0-8.3); Triglycerides* 148 mg/dL (40-149)
== END 2022-08-30 14:20 | disposition home or self-care (01) ==
PROVIDERS: Visit Provider Family Medicine
DX: I50.9 Heart failure, unspecified (principal); R79.89 Other specified abnormal findings of blood chemistry
CPT/HCPCS: 80061; 80076

== ENCOUNTER 2022-09-03 08:01 | Outpatient (CLI) | payer MEDICARE, SELFPAY ==
--- NOTE | 2022-09-03 08:30 | CRLHL7_ITS ---
For Patients: As a result of the Century Cures Act, medical imaging exams and procedure reports are released immediately into your electronic medical record. You may view this report before your referring provider. If you have questions, please contact your health care provider. MYOCARDIAL PERFUSION SCAN CLINICAL HISTORY: Congestive heart failure. Hypertension. TECHNIQUE: (Resting SPECT and Stress Gated SPECT with wall motion and ejection fraction) Stress: Pharmacologic ??? Regadenoson (0.4 mg) (IV) Dose (Stress/Rest): 29.6 mCi/8.2 mCi Tc-99m Sestamibi (IV) Comparison: 10/24/2004 myocardial perfusion scan FINDINGS: There is good uptake of the radiotracer by the left ventricle. There is severe left ventricular dilatation with end-diastolic volume of 278 cc. There is a medium to large moderate to severe transmural infarct identified base to apex inferior wall and inferoseptal region. There is a small to medium size anteroseptal transmural infarct identified with mild sandra-infarct ischemia base to apex. No other significant abnormal uptake is identified. Gated images demonstrate a abnormal left ventricular ejection fraction of 29 percent. There is moderate global hypokinesis with severe hypokinesis in the basal inferior wall. IMPRESSION: 1. Medium to large transmural infarct involving the inferior/inferoseptal wall of the left ventricle, base to apex. 2. Small to medium sized anteroseptal infarct is identified with mild sandra-infarct ischemia, base to apex. 3. No other significant perfusion abnormalities are noted. 4. Abnormal low left ventricular ejection fraction of 29 percent. Moderate global hypokinesis and severe hypokinesis in the inferior wall is moted. 5. Severe left ventricular dilatation is identified with end-diastolic volume of 278 cc. 6. The above findings have worsened since the 2003 exam. SCOTT VARGAS M.D. Diagnostic/Nuclear Medicine Radiologist [employer] [email or web address] Transcribed: 3:40 pm DW/Dictated by: Scott Vargas MD @ 09/03/2022 2:49:00 PM (Electronically Signed)
[2022-09-03] MEDS: REGADENOSON 0.4 MG/5 ML SYRINGE IVP (10:50)
[2022-09-03] MEDS: SODIUM CHLORIDE 0.9 % (FLUSH) 10 ML SYRINGE IVF (10:50)
[2022-09-03 11:10] VITALS: BP 254/57
--- NOTE | 2022-09-03 17:04 | P.STN_ITS ---
Stress Test Note Date Date Seen: 09/03/22 Date of test: 09/03/22 Providers Referring provider: Angel Lomeli Primary care provider: Julian Guerrero Stress test physician: Klaus Beth Stress Test Note Stress test ordered: Lexiscan Indication for test: heart failure /LBBB Stress test medicine: Lexiscan Results discussion: * Patient is seen for the above test after discussion the risks benefits and side effects he would like to proceed pretest cardiac stress test medical history form is reviewed. Pretest EKG shows normal sinus rhythm with a ventricular rate of 68, blood pressure 129 and 74, left bundle branch block configuration is noted, with occasional PVCs. Standard infusion of Lexiscan is done sitting over 5 minute. , maximum heart rate was 97, with 82% of the maximum target predicted at 10 minutes. During this test there is no says appreciable change in his baseline rhythm, there is no chest pain, no other issues Impression: Negative electrographic portion of Lexiscan Follow up suggested: Follow-up with the Cardiology is suggested, await nuclear images, patient left this testing facility in excellent condition.
== END 2022-09-03 08:02 | disposition home or self-care (01) ==
PROVIDERS: PCP Family Medicine; Visit Provider Family Medicine
DX: I50.9 Heart failure, unspecified (principal); I10 Essential (primary) hypertension; I21.A9 Other myocardial infarction type; I38 Endocarditis, valve unspecified
CPT/HCPCS: 78452; 93016; 93017; A9500; J2785

== ENCOUNTER 2023-12-04 11:12 | Outpatient (CLI) | payer MEDICARE, SELFPAY | END 2023-12-04 11:13 | disposition home or self-care (01) | PROVIDERS: PCP Family Medicine; Visit Provider Family Medicine | DX: Z00.00 Encounter for general adult medical examination without abnormal findings (principal); R73.03 Prediabetes; E78.5 Hyperlipidemia, unspecified; R79.89 Other specified abnormal findings of blood chemistry; I10 Essential (primary) hypertension; D64.9 Anemia, unspecified; R97.20 Elevated prostate specific antigen [PSA]; I50.9 Heart failure, unspecified | CPT/HCPCS: 80053; 80061; G0103 ==

== ENCOUNTER 2024-01-09 10:33 | Outpatient (CLI) | payer MEDICARE, SELFPAY | END 2024-01-09 10:34 | disposition home or self-care (01) | LOC: LKVREF 10:35 | PROVIDERS: PCP Family Medicine; Visit Provider Family Medicine | DX: I50.9 Heart failure, unspecified (principal); R01.1 Cardiac murmur, unspecified | CPT/HCPCS: 83880 ==

== ENCOUNTER 2024-01-23 12:52 | Outpatient (CLI) | payer MEDICARE, SELFPAY | END 2024-01-23 12:53 | disposition home or self-care (01) | PROVIDERS: PCP Family Medicine; Visit Provider Family Medicine | DX: I51.7 Cardiomegaly (principal); I35.2 Nonrheumatic aortic (valve) stenosis with insufficiency; I34.0 Nonrheumatic mitral (valve) insufficiency; I49.9 Cardiac arrhythmia, unspecified; I50.9 Heart failure, unspecified; I77.810 Thoracic aortic ectasia | CPT/HCPCS: 93306 ==

== ENCOUNTER 2024-10-19 10:40 | Outpatient (CLI) | payer MEDICARE, SELFPAY | END 2024-10-19 10:41 | disposition home or self-care (01) | LOC: LKVREF 10:40 | PROVIDERS: PCP Family Medicine; Visit Provider Family Medicine | DX: D69.6 Thrombocytopenia, unspecified (principal); I25.10 Atherosclerotic heart disease of native coronary artery without angina pectoris; M19.90 Unspecified osteoarthritis, unspecified site; R73.03 Prediabetes | CPT/HCPCS: 80053 ==

== ENCOUNTER 2025-03-31 10:41 | Outpatient (CLI) | payer MEDICARE, SELFPAY | END 2025-03-31 10:42 | disposition home or self-care (01) | PROVIDERS: PCP Family Medicine; Visit Provider Family Medicine | DX: Z00.01 Encounter for general adult medical examination with abnormal findings (principal); I50.20 Unspecified systolic (congestive) heart failure; E78.5 Hyperlipidemia, unspecified; R73.03 Prediabetes; R97.20 Elevated prostate specific antigen [PSA]; Z12.5 Encounter for screening for malignant neoplasm of prostate | CPT/HCPCS: 80053; 80061; G0103 ==

== ENCOUNTER 2025-04-11 09:44 | Outpatient (CLI) | payer MEDICARE, SELFPAY | END 2025-04-11 09:45 | disposition home or self-care (01) | LOC: RAD 09:45 | PROVIDERS: PCP Family Medicine; Visit Provider Family Medicine | DX: I35.0 Nonrheumatic aortic (valve) stenosis (principal); I25.10 Atherosclerotic heart disease of native coronary artery without angina pectoris; I34.0 Nonrheumatic mitral (valve) insufficiency; I07.1 Rheumatic tricuspid insufficiency | CPT/HCPCS: 93306 ==

== ENCOUNTER 2025-06-08 11:29 | Emergency (ER) | payer MEDICARE, SELFPAY ==
[2025-06-08] VITALS (24 sets, daily range): BP systolic 74–147; BP diastolic 59–122; PULSE 66–107; RESP 16–33; O2SAT 73–100
--- NOTE | 2025-06-08 | CRLHL7_ITS ---
For Patients: As a result of the Century Cures Act, medical imaging exams and procedure reports are released immediately into your electronic medical record. You may view this report before your referring provider. If you have questions, please contact your health care provider. Indication: Dyspnea Technique: Chest 1 view Comparison: Chest x-ray 07/23/2022 Findings/Impression: Cardiovascular and mediastinum: Mild cardiomegaly. Lungs and pleural space: No pleural effusion or pneumothorax. Bilateral interstitial opacities, asymmetrically greater on the right favoring pulmonary edema. Bones and soft tissues: No acute findings. Dictated by Sony Anand MD @ 06/08/2025 12:16:32 PM (Electronically Signed)
--- OUTSIDE RECORDS SUMMARY | 2025-06-08 11:31 | XMS_ITS | Clinical Summary ---
Author Organization [facility] Address [address] [place] [id number] Care Team Providers Care Outreach Analyst Name Role Phone [facility], [facility] Primary Care Provider Allergies No known active allergies Encounters Date Type Department Care Team Description 05/20/2025 Transcribe Orders GENERIC EXTERNAL DATA DEPARTMENT Adam Houser MD Chronic systolic heart failure (H) (Primary Dx) 04/19/2025 Allied Health/Nurse Visit [address] [id number] [facility] Hypertension (Blood pressure check at [facility]... 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
--- OUTSIDE RECORDS SUMMARY | 2025-06-08 11:31 | XMS_ITS | Clinical Summary ---
Author Organization [facility] Address [address] [place] [id number] Care Team Providers Care Internet Ecommerce Specialist Name Role Phone Pcp, No Primary Care Provider Unavailabl e Allergies No known active allergies Medications metoprolol tartrate (LOPRESSOR) 50 mg tabletIndications:H ypertension TAKE ONE TABLET BY MOUTH TWICE A DAY 60 tablet 8 Active simvastatin (ZOCOR) 80 mg tabletIndications:H yperlipidemia, unspecified hyperlipidemia type TAKE ONE TABLET BY MOUTH EVERY DAY WITH EVENING MEAL 30 tablet 8 Active atorvastatin (LIPITOR) 40 mg tablet Take 1 tablet by mouth once daily. 0 8 Active amLODIPine (NORVASC) 5 mg tablet Take 1 tablet by mouth once daily. 0 8 Active lisinopril-hydrochl orothiazide, 20-25 mg, (PRINZIDE, ZESTORETIC) 20-25 mg per tabletIndications:H ypertension TAKE ONE TABLET BY MOUTH EVERY DAY (NEED TO MAKE APPT) 30 tablet 8 Active doxazosin (CARDURA) 4 mg tabletIndications:B enign prostatic hyperplasia with nocturia Take 1 tablet by mouth at bedtime. 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 Other ill-defined and unknow n causes of morbidity and mortality Encounters Date Type Department Care Team Description 05/09/2025 Orders Only [facility] [address] [place] [address] JOCELYN Gonzales [id number] Melanie Robertson <No scans attached> 05/09/2025 Orders Only [facility] [address] [place] [address] JOCELYN Gonzales [id number] Melanie Robertson <No scans attached> 05/09/2025 Orders Only [facility] [address] [place] [address] JOCELYN Gonzales [phone] Melanie Robertson <No scans attached> 04/28/2025 11:30 AM CDT Office Visit [facility] [address] [place] [address] Charles Lerma MD 04/11/2025 10:00 AM CDT Ancillary Procedure [facility] [address] [place] [address] from Last 3 Months Immunizations Immunization Administration Dates Next Due Pneumococcal Poly,23-Valent (Pneumovax) 04/30/20 07 Pneumococcal conj 13-Valent (Prevnar 13) 015 Td (Age >=7 Years) 12/01/1997 Td, Preservative Free (age >= 7 Years) 8 Tetanus/Diptheria 04/08/2018,05/20/2008 Zoster (Zostavax-ZVL, live) 05/18/2012 Family History Medical History Relation Name Comments Blindness Mother She is 101 Genetic Other 1 Mother Hyperten bethany Genetic Other 2 There is a fami ly hx. of cardiac problems and hypertension. Anesthesia Problem No Family History Blood Disease No Family History Clotting disorder No Family History Relation Name Status Comments Mother Other 1 Other 2 Social History Tobacco Use Types Packs/Day Years Used Date Smoking Tobacco: Never Smokeless Tobacco: Never Tobacco Cessation:Counseling Given: Yes Alcohol Use Standard Drinks/Week Comments Not Currently 1.7 (1 standard drink = 0.6 oz p ure alcohol) PHQ-2 Answer Date Recorded PHQ-2 Score 0 10/12/2019 Social Connections Answer Date Recorded Frequency of Communication with Friends and Fami ly Not on file 08/23/2022 Sex and Gender Information Value Date Recorded Sex Assigned at Not on file 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 Gender Identity Not on file Sexual Orientation Not on file 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 Not on file Not on file Not on fi le Obstetrics History Last Filed Vital Signs Vital Sign Reading Time Taken Comments Blood Pressure 150/80 10/12/2019 9:05 AM AUTOMATION MACHINE OPERATOR Pulse 58 10/12/2019 9:05 AM AUTOMATION MACHINE OPERATOR Temperature 37.1 C (98.7 F) 06/07/2019 3:32 PM CDT Respiratory Rate 18 06/07/2019 3:32 PM CDT Oxygen Saturation 96% 06/07/2019 3:32 PM CDT Inhaled Oxygen Concentration - - Weight 99.3 kg (219 lb) 10/12/2019 9:05 AM AUTOMATION MACHINE OPERATOR Height 165.1 cm (5' 5) 10/12/2019 9:05 AM AUTOMATION MACHINE OPERATOR Body Mass Index 36.44 10/12/2019 9:05 AM AUTOMATION MACHINE OPERATOR Plan of Treatment Health Maintenance Due Date Last Done Comments Medicare Wellness for age 65+ 2005 Zoster (shingles) series for age 50+ (2 of 3) 07/13/2012 05/18/2012 RSV vaccine for adults or (1 - 1-dose 75+ series) 2015 Tetanus booster 05/20/2018 05/20/2008, 12/01/1997 BMI (ht and wt on same day) for age 18+ 10/12/2020 10/12/2019, 04/26/2016 Depression screening for age 12+ 10/12/2020 10/12/2019, 05/11/2018, 04/26/2016, Additional history exists COVID-19 vaccine series ( season) 2025 10/19/2024, 11/19/2021, 02/13/2021, Additional history exists Influenza Vaccine (#1) 2025 Pneumococcal series for age 50+ Completed 04/06/2015, 04/30/2007 Hepatitis B series for 19+ Aged Out N o longer eligible based on patient's age to complete this topic Procedures Procedure Name Priority Date/Time Associated Diagnosis Comments ECHO TTE COMPLETE WO CONTRAST Routine 04/11/2025 10:30 AM CDT Nonrheumatic aortic (valve) stenosis from Last 3 Months Results * ECHO TTE COMPLETE WO CONTRAST (04/11/2025 10:30 AM CDT) AORTIC VALVE MEAN PG 10 mmHg EJECTION FRACTION 22 % LVEDD 6.6 cm EJECTION FRACTION 20 - 25% Anatomical Region Laterality Modality Ultrasound 04/11/2025 10:0 5 AM CDT Narrative 04/11/2025 11:22 AM CDT ECHOCARDIOGRAM BLAKE MCGOWAN : 1940 84 years Study Date: 04/11/2025 10:05:02 AM Gender: M BP: 127/81 mmHg Height: 163.00 cm BSA: 1.98 m Weight: 93.00 kg Tech: R Referring MD: HATTIE GUERRERO Site: [facility] Reading Location: MOBILE OP Patient Location: Outpatient. Procedure: 2D, Color Doppler and Spectral Doppler. Indication for study: aortic stenosis Cardiac Rhythm: Irregular.Study quality: Good. Final Impressions: 1. Moderate to severely increased left ventricular size, normal wall thickness, severely reduced global systolic function, calculated EF of 22 %. 2. Right ventricular cavity size is normal, global systolic RV function is normal. 3. Severely enlarged left atrium. 4. The aortic valve is trileaflet and calcified, mild stenosis and mild to moderate regurgitation. The aortic valve peak velocity is 2.0 m/s, the peak gradient is 16 mmHg, and the mean gradient is 10 mmHg. The aortic valve area is 1.63 cm with a dimensionless index of 0.35. The stroke volume index is 38.2 ml/m . 5. 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 6. Tricuspid valve is normal, mild tricuspid regurgitation. 7. Dilated sinus of Valsalva, diameter of 4.3 cm (upper limit of normal for age, sex, and BSA is 4.2 cm*), Height Index 2.64 cm/m. 8. No pericardial effusion. Chamber Sizes and Function Moderate to severely increased left ventricular size, normal wall thickness, severely reduced global systolic function, calculated EF of 22 %. Left atrial size is severely enlarged. Right ventricular cavity size is normal, global systolic RV function is normal. The right atrium is mildly enlarged. Right atrial volume index is 18 ml/m . Right atrial area is 16 cm . The pulmonary artery is of normal size and origin. The sinus of Valsalva is dilated. The ascending aorta is normal sized. Valves, RV Pressures and Diastolic Function The aortic valve is trileaflet and calcified, mild stenosis and mild to moderate regurgitation. 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 Diastolic function assessment not performed. The tricuspid valve is normal in structure, mild tricuspid regurgitation. The pulmonic valve is normal. Mild-moderate pulmonary regurgitation. Masses, Effusion, Shunts There is no pericardial effusion. The inferior vena cava is normal sized, respiratory size variation greater than 50%. No left to right shunting was detected by limited color flow Doppler interrogation of the interatrial septum. MEASUREMENTS AND CALCULATIONS 2-D Measurements and LV Function: LVID (d) 6.6 cm Planimetered EF 22 % LVID (s) 5.9 cm LV FS% (2D) 11 % IVS (d) 1.1 cm LVOT diameter 2.4 cm LVPW (d) 1.1 cm HR 67 bpm Ao Sinus 4.3 cm RA Vol index 18 ml/m2 Ao Sinus ULN 4.2 cm * RA area [address] junct 3.9 cm RV Basal Diam 3.3 cm Asc Ao 4.3 cm RV Mid Diam 3.0 cm Asc Ao ULN 4.4 cm * LA 5.0 cm * Input age outside of range, reported values correspond to Age = 80 Diastology: Mitral E Peak 1.0 m/s A Peak 0.6 m/s E/A 1.6 DT 211 msec Aortic Valve: Vmax 2.0 m/s GERALDO (V) 1.56 cm AI P 1/2 821 msec VTI 0.46 m GERALDO (I) 1.63 cm LVOT V max 0.7 m/s Max PG 16 mmHg LVOT VTI 0.16 m Mean PG 10 mmHg SV 76 ml Dim Index 0.35 SV index 38 ml/m CO 5.1 l/min CI 2.6 l/min/m Mitral Valve: MVA 3.6 cm MR TVI 1.52 m MV P 1/2 61 msec MV Mean G 2 mmHg MV VTI 0.41 m Tricuspid Valve and estimated PA pressures: TAPSE 1.6 cm . This study was interpreted by an [facility] accredited facility. CC: [facility] (med [facility]) [facility]. Final Procedure Note Lizet Valentin, [facility] - 04/11/2025 ECHOCARDIOGRAM BLAKE MCGOWAN : 1940 84 years Study Date: 04/11/2025 10:05:02 AM Gender: M BP: 127/81 mmHg Height: 163.00 cm BSA: 1.98 m Weight: 93.00 kg Tech: [facility] Referring MD: HATTIE UGERRERO Site: [facility] Reading Location: MOBILE OP Patient Location: Outpatient. Procedure: 2D, Color Doppler and Spectral Doppler. Indication for study: aortic stenosis Cardiac Rhythm: Irregular.Study quality: Good. Final Impressions: 1. Moderate to severely increased left ventricular size, normal wallthickness, severely reduced global systolic function, calculated EF of 22%. 2. Right ventricular cavity size is normal, global systolic RV functionis normal. 3. Severely enlarged left atrium. 4. The aortic valve is trileaflet and calcified, mild stenosis and mildto moderate regurgitation. The aortic valve peak velocity is 2.0 m/s, thepeak gradient is 16 mmHg, and the mean gradient is 10 mmHg. The aorticvalve area is 1.63 cm with a dimensionless index of 0.35. The strokevolume index is 38.2 ml/m . 5. 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 6. Tricuspid valve is normal, mild tricuspid regurgitation. 7. Dilated sinus of Valsalva, diameter of 4.3 cm (upper limit of normalfor age, sex, and BSA is 4.2 cm*), Height Index 2.64 cm/m. 8. No pericardial effusion. Chamber Sizes and Function Moderate to severely increased left ventricular size, normal wallthickness, severely reduced global systolic function, calculated EF of 22%. Left atrial size is severely enlarged. Right ventricular cavity size isnormal, global systolic RV function is normal. The right atrium is mildlyenlarged. Right atrial volume index is 18 ml/m . Right atrial area is 16cm . The pulmonary artery is of normal size and origin. The sinus ofValsalva is dilated. The ascending aorta is normal sized. Valves, RV Pressures and Diastolic Function The aortic valve is trileaflet and calcified, mild stenosis and mild tomoderate regurgitation. The mitral valve is tethered, moderate mitralregurgitation. Diastolic function assessment not performed. The tricuspidvalve is normal in structure, mild tricuspid regurgitation. The pulmonicvalve is normal. Mild-moderate pulmonary regurgitation. Masses, Effusion, Shunts There is no pericardial effusion. The inferior vena cava is normal sized,respiratory size variation greater than 50%. No left to right shunting wasdetected by limited color flow Doppler interrogation of the interatrialseptum. MEASUREMENTS AND CALCULATIONS 2-D Measurements and LV Function: LVID (d) 6.6 cm Planimetered EF 22% LVID (s) 5.9 cm LV FS% (2D) 11% IVS (d) 1.1 cm LVOT diameter2.4 cm LVPW (d) 1.1 cm HR 67bpm Ao Sinus 4.3 cm RA Vol index 18ml/m2 Ao Sinus ULN 4.2 cm * RA area 16cm Ao ST junct 3.9 cm RV Basal Diam3.3 cm Asc Ao 4.3 cm RV Mid Diam3.0 cm Asc Ao ULN 4.4 cm * LA 5.0 cm * Input age outside of range, reported values correspond to Age = 80 Diastology: Mitral E Peak 1.0 m/s A Peak 0.6 m/s E/A 1.6 DT 211 msec Aortic Valve: Vmax 2.0 m/s GERALDO (V) 1.56 cm AI P 1/2 821 msec VTI 0.46 m GERALDO (I) 1.63 cm LVOT V max 0.7 m/s Max PG 16 mmHg LVOT VTI 0.16 m Mean PG 10 mmHg SV 76 ml Dim Index 0.35 SV index 38 ml/m CO 5.1 l/min CI 2.6 l/min/m Mitral Valve: MVA 3.6 cm MR TVI 1.52 m MV P 1/2 61 msec MV Mean G 2 mmHg MV VTI 0.41 m Tricuspid Valve and estimated PA pressures: TAPSE 1.6 cm . This study was interpreted by an [facility] accredited facility. CC: [facility] (med records) [facility]. Final Hattie Guerrero MD ECHO ORD Final Result from Last 3 Months Insurance MEDICARE PB ONLY MEDICARE PART B HB ONLY MEDICARE PART B HB ONLY MEDICARE PART A HB ONLY Care Teams Internet Ecommerce Specialist Relationship Specialty Start Date End Date Pcp, No . PCP - General 04/23/21
--- OUTSIDE RECORDS SUMMARY | 2025-06-08 11:31 | XMS_ITS | Encounter Summary ---
Author Organization [facility] Address [address] [place] [id number] Care Team Providers Care Explosive Man Name Role Phone Clinic, [facility] Primary Care Provider Reason for Referral * Rehab Therapy Cardiac Therapy (Routine) - Pending Review Specialty Diagnoses / Procedures Referred By Contac t Referred To Contact Diagnoses Chronic systolic heart failure (H) Adam Houser MD [address] [address] Phone: tel: fax: Referral ID Status Reason Start Date Expiration Date V isits Requested Visits Authorized [id number] Pending Review 05/20/2025 05/20/2026 1 1 Question Answer Which Procedure did the patient have? Heart Failure (Chronic Systolic) Special Programs: Outpatient Phase 2 Cardiac Rehab Program Patient Scheduling Instructions: [facility] will call you to coordinate your care as prescribed by your provider. If you don't hear from a medical customer service representative within 2 business days, please call . Comments Please be aware that coverage of these services is subject to the terms and limitations of your health insurance plan. Call member services at your health plan with any benefit or coverage questions. [facility] will call you to coordinate your care as prescribed by your provider. If you don't hear from a medical customer service representative within 2 business days, please call . 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 Gender Identity Not on file Sexual Orientation Not on file documented as of this encounter Plan of Treatment Scheduled Referrals Name Type Priority Associated Diagnoses Orde r Schedule Cardiac Rehab Movie Editor Referral Referral Routine Chronic systolic heart failure (H) Ordered: 05/20/2025 documented as of this encounter Visit Diagnoses Diagnosis Chronic systolic heart failure (H)- Primary Chronic systolic heart failure documented in this encounter Care Teams Explosive Man Relationship Specialty Start Date End Date Clinic, [address] [address] PCP - General 04/14/18 documented as of this encounter
[2025-06-08] MEDS: IPRAT-ALBUT 0.5-2.5 MG/3 ML NEB 1 NEB IH ×2 (11:40)
[2025-06-08] MEDS: FUROSEMIDE 10 MG/ML inj 40 MG IVP (11:55)
[2025-06-08] MEDS: NITROGLYCERIN/DEXTROSE 25,000 MCG/250 ML BOTTLE 3 MCG IVPB (12:06)
--- NOTE | 2025-06-08 12:10 | ED.GENADULT ---
HPI - General Adult General Chief complaint: Shortness of Breath/Dyspnea Stated complaint: Respiratory distress Time Seen by Provider: 06/08/25 11:33 Source: patient and family Mode of arrival: ambulatory Limitations: physical limitation History of Present Illness HPI narrative: 84-year-old male presenting in acute respiratory failure. Per his daughter he has been complaining of feeling slightly short of breath for the last couple of weeks. He has been stating that he has been unable to go side because of the heat. Today he called his son and told him that he could not breathe. When his son arrived he saw his dad was breathing really hard and offer to call the ambulance. Father stated that he did not want that and had his son drive him to the ER. Upon arrival patient is tachypneic, tachycardic and in acute respiratory failure with oxygen saturation in the 70s. Denies chest pain. States that this acute respiratory event started just this morning. Patient wishes to be full code. Related Data Previous Rx's ?Medication ?Instructions ?Recorded aspirin 81 mg tablet,delayed 81 mg PO DAILY #100 tabs 04/09/24 release diclofenac sodium 1 % topical gel 2 g topical QID PRN pain #100 grams 10/19/24 (Arthritis Pain (diclofenac)) atorvastatin 40 mg tablet (Lipitor) 40 mg PO HS #90 tabs 10/21/24 lisinopril 10 1 tab PO QDAY #90 tabs 10/21/24 mg-hydrochlorothiazide 12.5 mg tablet metoprolol tartrate 50 mg tablet 25 mg (1/2 x 50 mg) PO BID #90 tabs 10/21/24 (Lopressor) Allergies Allergy/AdvReac Type Severity Reaction Status Date / Time No Known Drug Allergies Allergy Verified 04/28/25 11:36 Review of Systems Status of ROS: Reports: 6 or more systems reviewed and unremarkable except as noted in History and below [facility] Medical History Right knee pain ?M25.561 - Pain in right knee (ICD-10) DJD (degenerative joint disease) ?M19.90 - Unspecified osteoarthritis, unspecified site (ICD-10) Aortic stenosis ?I35.0 - Nonrheumatic aortic (valve) stenosis (ICD-10) CAD (coronary artery disease) ?I25.10 - Atherosclerotic heart disease of [place] coronary artery without angina pectoris (ICD-10) Elevated PSA ?R97.20 - Elevated prostate specific antigen [PSA] (ICD-10) LVH (left ventricular hypertrophy) ?I51.7 - Cardiomegaly (ICD-10) Anemia ?D64.9 - Anemia, unspecified (ICD-10) Hyperlipidemia ?E78.5 - Hyperlipidemia, unspecified (ICD-10) Hypertension ?I10 - Essential (primary) hypertension (ICD-10) Dilatation of thoracic aorta ?I77.810 - Thoracic aortic ectasia (ICD-10) Pericardial effusion ?I31.3 - Pericardial effusion (noninflammatory) (ICD-10) Left bundle branch block ?I44.7 - Left bundle-branch block, unspecified (ICD-10) Abnormal LFTs ?R79.89 - Other specified abnormal findings of blood chemistry (ICD-10) Congestive heart failure ?I50.9 - Heart failure, unspecified (ICD-10) Peripheral vascular disease ?I73.9 - Peripheral vascular disease, unspecified (ICD-10) Retinal artery occlusion ?H34.9 - Unspecified retinal vascular occlusion (ICD-10) Hyperlipidemia ?E78.5 - Hyperlipidemia, unspecified (ICD-10) CVA (cerebral vascular accident) ?I63.9 - Cerebral infarction, unspecified (ICD-10) Stroke ?I63.9 - Cerebral infarction, unspecified (ICD-10) Surgical History History of open reduction and internal fixation (ORIF) procedure (1998) ?Z98.890 - Other specified postprocedural states (ICD-10) History of phacoemulsification of cataract of both eyes with intraocular lens implantation ?Z98.41 - Cataract extraction status, right eye (ICD-10) ?Z98.42 - Cataract extraction status, left eye (ICD-10) ?Z96.1 - Presence of intraocular lens (ICD-10) 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) ?Z96.652 - Presence of left artificial knee joint (ICD-10) H/O carotid endarterectomy ?Z98.890 - Other specified postprocedural states (ICD-10) History of knee replacement ?Z96.659 - Presence of unspecified artificial knee joint (ICD-10) Family History Mother Stroke High blood pressure Social History Narrative: Retired worker What is your current living situation?: I presently have a place to live Problems where you live: no known problems In the past 12 months, utilities in danger of being shut off: no In past 12 months, lack of transportation kept you from medical appts, meetings, work, or getting things needed for daily living: no In the past 12 mos, have been you worried that your food would run out before you had money to buy more?: never true In the past 12 mos, the food you bought just didn't last and you didn't have money to buy more?: never true Highest level of school completed/degree received: high school graduate Smoking Status: Never smoker Do you use any of these nicotine containing products: None Second hand tobacco smoke exposure: Yes How often do you have a drink containing alcohol: monthly or less AUDIT-C Alcohol total score: 1 Non-prescribed substance use: denies use Caffeine: Yes (4-5 cups a day) How often does anyone, including family, friends and others, physically hurt you: never How often does anyone, including family, friends and others, insult or talk down to you: never How often does anyone, including family, friends and others, threaten you with harm: never How often does anyone, including family, friends and others, scream or curse at you: never service: Yes Exam Narrative: Exam Narrative: Overweight, well-developed patient in acute respiratory distress. Cooperative and is able to answer questions with one-word answers. Patient is blue and dusky, quite diaphoretic. HEENT: Normocephalic atraumatic. Pupils are equally round reactive to light. Extraocular muscles are intact. Conjunctivae are moist without any icterus noted. Moist mucous membranes. Cardiovascular: Tachycardic. Lungs: Diffuse rhonchi bilaterally. Abdomen: Protuberant and soft with normal bowel sounds. Extremities: Trace edema bilaterally. Skin: Diaphoretic. Const: Vital Signs, click to edit/add: Vital Signs - 24 hr 06/08/25 11:33 06/08/25 12:01 Pulse Rate [Left P ulse Oximeter] 107 H Respiratory Rate 33 H Blood Pressure [Le ft Upper Arm] 147/122 H Pulse Oximetry 73 L Oxygen Delivery Me thod Room Air Fraction of Inspir ed Oxygen 50 Course Course ED Course: Patient received 2 DuoNebs directly upon arrival as IVs were being established. Patient was then placed on BiPAP and labs were drawn. EKG shows tachycardia with a left bundle branch block. Portable chest shows bilateral pulmonary edema. 40 mg of IV Lasix was given and a nitro drip was started. Discussed patient with Dr. Allred, circulating process inspector at [facility] who recommends transfer. Unfortunately there is an 8 over bed wait for an ICU bed so he did speak to the circulating process inspector at [place]. Dr. Bell accepted. In the meantime, patient started failing BiPAP. Respiratory rate went from 30-11 in the machine started breathing for him. Therefore is anesthesia team was called the patient was intubated. Patient transferred to [place] at this time. Vital Signs Vital signs: Initial Vital Signs Pulse Rate 107 H 06/08/25 11:33 Pulse Rhythm Regular 06/08/25 11:33 Respiratory Rate 33 H 06/08/25 11:33 Blood Pressure 147/122 H 06/08/25 11:33 Blood Pressure Mean 130 H 06/08/25 11:33 Blood Pressure Position Sitting 06/08/25 11:33 Pulse Oximetry 73 L 06/08/25 11:33 Oxygen Delivery Method Room Air 06/08/25 11:33 Vital Signs Pulse Rate 107 H 06/08/25 11:33 Respiratory Rate 33 H 06/08/25 11:33 Blood Pressure 147/122 H 06/08/25 11:33 Pulse Oximetry 73 L 06/08/25 11:33 Oxygen Delivery Method Room Air 06/08/25 11:33 Pulse Rate 107 H 06/08/25 11:33 Respiratory Rate 33 H 06/08/25 11:33 Blood Pressure 147/122 H 06/08/25 11:33 Pulse Oximetry 73 L 06/08/25 11:33 Oxygen Delivery Method Room Air 06/08/25 11:33 Fraction of Inspired Oxygen 50 06/08/25 12:01 Medications Administered Medications: Generic Name Dose Route Start Last Admin Trade Name Freq PRN Reason Stop Dose Admin Nitroglycerin/Dextrose 25,000 mcg in 250 mls @ 3 mls/hr 06/08/25 11:54 06/08/25 12:06 Nitroglycerin/Dextrose IVPB 5 mcg/min .TITRATE PRN 3 mls/hr Protocol Administration 5 MCG/MIN Discontinued Medications Generic Name Dose Route Start Last Admin Trade Name Freluz elena PRN Reason Stop Dose Admin Furosemide 40 mg 06/08/25 11:53 06/08/25 11:55 Furosemide 10 Mg/Ml Inj IVP 06/08/25 11:54 40 mg ONCE ONE Administration Medical Decision Making MDM Narrative Medical decision making narrative: Acute respiratory failure. Probable flash pulmonary edema. Lab Data Lab results reviewed: Yes I reviewed the patient's lab results Labs: Lab Results 06/08/25 06/08/25 Range/Units 11:40 11:45 WBC 14.40 H (4.50-11.00) K/uL RBC 4.87 (4.30-5.90) m/uL Hgb 14.3 (13.5-17.5) gm/dL Hct 46.7 (37.0-53.0) % MCV 96 (80-100) fL MCH 29 (26-34) pg MCHC 31 L (32-36) gm/dL RDW Coeff of [place] 14.1 (11.5-15.5) % Plt Count 185 (140-440) K/uL Neut % (Auto) 54.4 (42.0-72.0) % Lymph % (Auto) 30.2 (20-44) % [place] % (Auto) 11.7 H (0.0-11.0) % Eos % (Auto) 2.5 (0.0-7.0) % Baso % (Auto) 0.4 (0.0-3.0) % Neut # (Auto) 7.80 H (1.7-7.0) K/uL Lymph # (Auto) 4.30 H (0.90-2.90) K/uL [place] # (Auto) 1.70 H (0.00-0.90) K/UL Eos # (Auto) 0.40 (0.00-0.50) K/uL Baso # (Auto) 0.10 (0.00-0.30) K/uL Abs Immat Gran (auto) 0.10 (0.00-0.30) K/uL Imm/Tot Granulo (auto) 0.8 % VBG pH 7.185 L* (7.32-7.43) VBG pCO2 65 H* (40-50) mmHG VBG pO2 48.2 H (25-47) mmHG VBG HCO3 24 (21-28) mmol/L Sodium 139 (135-149) mmol/L Potassium 3.9 (3.6-5.1) mmol/L Chloride 101 (96-114) mmol/L Carbon Dioxide 24 (20-32) mmol/L Anion Gap 14 (7-15) mEq/L BUN 24 (7-30) mg/dL Creatinine 1.2 (0.5-1.5) mg/dL Estimated GFR 60 ml/min Glucose 332 H (60-115) mg/dL Lactate 5.2 H* (0.5-1.9) mmol/L Calcium 9.1 (8.4-10.6) mg/dL Total Bilirubin 0.6 (0.1-1.5) mg/dL Direct Bilirubin 0.1 (0.0-0.5) mg/dL AST 33 (12-35) U/L ALT 37 (4-50) U/L Alkaline Phosphatase 78 (40-150) U/L C-Reactive Protein 0.9 (0.5-1.0) mg/dL Total Protein 7.4 (6.0-8.3) g/dL Albumin 4.5 (3.3-5.0) g/dL POC Troponin I 0.03 (0.01-0.04) ng/ml Imaging Data Chest x-ray: Attestation: I have reviewed the pertinent imaging results. Radiologist's impression: Technique: Chest 1 view Comparison: Chest x-ray 07/23/2022 Findings/Impression: Cardiovascular and mediastinum: Mild cardiomegaly. Lungs and pleural space: No pleural effusion or pneumothorax. Bilateral interstitial opacities, asymmetrically greater on the right favoring pulmonary edema. Bones and soft tissues: No acute findings. ECG Data Attestation: I personally reviewed and interpreted this ECG as follows: Critical Care Time Critical Care Time Total Critical Care Time in Minutes: 60 Discharge Plan Discharge Clinical Impression: Pulmonary edema, Acute hypoxemic respiratory failure Patient Disposition: Xfer Other Condition: Critical Additional Instructions: Accepted by a habit hospitalist Prescriptions: No Action diclofenac sodium [Arthritis Pain (diclofenac)] 1 % gel 2 g topical QID PRN (Reason: pain) Qty: 100 2RF Rx Instructions: apply to single elbow, wrist or hand; for hand includes palm/fingers/back of hand aspirin 81 mg tablet,delayed release (DR/EC) 81 mg PO DAILY Qty: 100 3RF atorvastatin [Lipitor] 40 mg tablet 40 mg PO HS Qty: 90 3RF lisinopril-hydrochlorothiazide 10-12.5 mg tablet 1 tab PO QDAY Qty: 90 3RF metoprolol tartrate [Lopressor] 50 mg tablet 25 mg PO BID Qty: 90 3RF Stand Alone Forms: MyHealth Info Instructions
[2025-06-08 12:13] LABS: Troponin, Point-of-Care* 0.03 ng/ml (0.01-0.04)
[2025-06-08 12:18] LABS: PO2 VBG 48.2 mmHG (25-47)
[2025-06-08 12:19] LABS: HCO3 VBG 24 mmol/L (21-28); Hematocrit 46.7 % (37.0-53.0); Hemoglobin* 14.3 gm/dL (13.5-17.5); Immature Granulocytes Pct Auto 0.8 %; Mean Corpuscular HGB Conc 31 gm/dL (32-36); Mean Corpuscular Hemoglobin 29 pg (26-34); Mean Corpuscular Volume 96 fL (80-100); RDW Coefficient of Variation % 14.1 % (11.5-15.5); Red Blood Count 4.87 m/uL (4.30-5.90); White Blood Count* 14.40 K/uL (4.50-11.00)
[2025-06-08 12:20] LABS: Immature Granulocytes Abs Auto 0.10 K/uL (0.00-0.30); Lymphocytes Absolute Auto 4.30 K/uL (0.90-2.90)
[2025-06-08 12:21] LABS: Lactate* 5.2 mmol/L (0.5-1.9); Slide Review Reflex No; pH VBG 7.185 (7.32-7.43)
[2025-06-08 12:22] LABS: Albumin* 4.5 g/dL (3.3-5.0); Chloride* 101 mmol/L (96-114); PCO2 VBG 65 mmHG (40-50); Potassium* 3.9 mmol/L (3.6-5.1); Sodium* 139 mmol/L (135-149)
[2025-06-08 12:24] LABS: Blood Urea Nitrogen* 24 mg/dL (7-30); Creatinine* 1.2 mg/dL (0.5-1.5); Estimated Glomerular Filt Rate 60 ml/min
[2025-06-08 12:25] LABS: Alanine Aminotransferase* 37 U/L (4-50); Alkaline Phosphatase* 78 U/L (40-150); Anion Gap 14 mEq/L (7-15); Aspartate Amino Transferase* 33 U/L (12-35); Bilirubin Direct* 0.1 mg/dL (0.0-0.5); Bilirubin Total* 0.6 mg/dL (0.1-1.5); Calcium* 9.1 mg/dL (8.4-10.6); Carbon Dioxide* 24 mmol/L (20-32); Glucose* 332 mg/dL (60-115); Total Protein* 7.4 g/dL (6.0-8.3)
[2025-06-08] MEDS: ETOMIDATE 2 MG/ML inj 30 MG IVP (12:31)
[2025-06-08] MEDS: SUCCINYLCHOLINE 20 MG/ML INJ 100 MG IVP (12:32)
[2025-06-08 12:37] LABS: NT Pro B Type NatriureticPept* 3610 pg/mL (See Note)
[2025-06-08] MEDS: propofoL 1,000 MG/100 ML ML 13.61 MG IVPB (12:43)
--- NOTE | 2025-06-08 12:44 | PM.ANBPRC ---
[facility] Medical History Right knee pain ?M25.561 - Pain in right knee (ICD-10) DJD (degenerative joint disease) ?M19.90 - Unspecified osteoarthritis, unspecified site (ICD-10) Aortic stenosis ?I35.0 - Nonrheumatic aortic (valve) stenosis (ICD-10) CAD (coronary artery disease) ?I25.10 - Atherosclerotic heart disease of [place] coronary artery without angina pectoris (ICD-10) Elevated PSA ?R97.20 - Elevated prostate specific antigen [PSA] (ICD-10) LVH (left ventricular hypertrophy) ?I51.7 - Cardiomegaly (ICD-10) Anemia ?D64.9 - Anemia, unspecified (ICD-10) Hyperlipidemia ?E78.5 - Hyperlipidemia, unspecified (ICD-10) Hypertension ?I10 - Essential (primary) hypertension (ICD-10) Dilatation of thoracic aorta ?I77.810 - Thoracic aortic ectasia (ICD-10) Pericardial effusion ?I31.3 - Pericardial effusion (noninflammatory) (ICD-10) Left bundle branch block ?I44.7 - Left bundle-branch block, unspecified (ICD-10) Abnormal LFTs ?R79.89 - Other specified abnormal findings of blood chemistry (ICD-10) Congestive heart failure ?I50.9 - Heart failure, unspecified (ICD-10) Peripheral vascular disease ?I73.9 - Peripheral vascular disease, unspecified (ICD-10) Retinal artery occlusion ?H34.9 - Unspecified retinal vascular occlusion (ICD-10) Hyperlipidemia ?E78.5 - Hyperlipidemia, unspecified (ICD-10) CVA (cerebral vascular accident) ?I63.9 - Cerebral infarction, unspecified (ICD-10) Stroke ?I63.9 - Cerebral infarction, unspecified (ICD-10) Surgical History History of open reduction and internal fixation (ORIF) procedure (1998) ?Z98.890 - Other specified postprocedural states (ICD-10) History of phacoemulsification of cataract of both eyes with intraocular lens implantation ?Z98.41 - Cataract extraction status, right eye (ICD-10) ?Z98.42 - Cataract extraction status, left eye (ICD-10) ?Z96.1 - Presence of intraocular lens (ICD-10) 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) ?Z96.652 - Presence of left artificial knee joint (ICD-10) H/O carotid endarterectomy ?Z98.890 - Other specified postprocedural states (ICD-10) History of knee replacement ?Z96.659 - Presence of unspecified artificial knee joint (ICD-10) Family History Mother Stroke High blood pressure Social History Narrative: Retired worker What is your current living situation?: I presently have a place to live Problems where you live: no known problems In the past 12 months, utilities in danger of being shut off: no In past 12 months, lack of transportation kept you from medical appts, meetings, work, or getting things needed for daily living: no In the past 12 mos, have been you worried that your food would run out before you had money to buy more?: never true In the past 12 mos, the food you bought just didn't last and you didn't have money to buy more?: never true Highest level of school completed/degree received: high school graduate Smoking Status: Never smoker Do you use any of these nicotine containing products: None Second hand tobacco smoke exposure: Yes How often do you have a drink containing alcohol: monthly or less AUDIT-C Alcohol total score: 1 Non-prescribed substance use: denies use Caffeine: Yes (4-5 cups a day) How often does anyone, including family, friends and others, physically hurt you: never How often does anyone, including family, friends and others, insult or talk down to you: never How often does anyone, including family, friends and others, threaten you with harm: never How often does anyone, including family, friends and others, scream or curse at you: never service: Yes Meds Home Medications and Allergies Home Medications ?Medication ?Instructions ?Recorded ?Confirmed ?Type aspirin 81 mg tablet,delayed 81 mg PO DAILY #100 tabs 04/09/24 04/28/25 Rx release diclofenac sodium 1 % topical gel 2 g topical QID PRN pain #100 grams 10/19/24 04/28/25 Rx (Arthritis Pain (diclofenac)) atorvastatin 40 mg tablet (Lipitor) 40 mg PO HS #90 tabs 10/21/24 04/28/25 Rx lisinopril 10 1 tab PO QDAY #90 tabs 10/21/24 04/28/25 Rx mg-hydrochlorothiazide 12.5 mg tablet metoprolol tartrate 50 mg tablet 25 mg (1/2 x 50 mg) PO BID #90 tabs 10/21/24 04/28/25 Rx (Lopressor) Allergies Allergy/AdvReac Type Severity Reaction Status Date / Time No Known Drug Allergies Allergy Verified 04/28/25 11:36 Results Labs Labs: Laboratory Results - last 24 hr 06/08/25 06/08/25 11:40 11:45 WBC 14.40 H RBC 4.87 Hgb 14.3 Hct 46.7 MCV 96 MCH 29 MCHC 31 L RDW Coeff of [place] 14.1 Plt Count 185 Neut % (Auto) 54.4 Lymph % (Auto) 30.2 [place] % (Auto) 11.7 H Eos % (Auto) 2.5 Baso % (Auto) 0.4 Neut # (Auto) 7.80 H Lymph # (Auto) 4.30 H [place] # (Auto) 1.70 H Eos # (Auto) 0.40 Baso # (Auto) 0.10 Abs Immat Gran (auto) 0.10 Imm/Tot Granulo (auto) 0.8 VBG pH 7.185 L* VBG pCO2 65 H* VBG pO2 48.2 H VBG HCO3 24 Sodium 139 Potassium 3.9 Chloride 101 Carbon Dioxide 24 Anion Gap 14 BUN 24 Creatinine 1.2 Estimated GFR 60 Glucose 332 H Lactate 5.2 H* Calcium 9.1 Total Bilirubin 0.6 Direct Bilirubin 0.1 AST 33 ALT 37 Alkaline Phosphatase 78 Troponin I 0.02 C-Reactive Protein 0.9 NT-Pro-B Natriuret Pep 3610 H Total Protein 7.4 Albumin 4.5 POC Troponin I 0.03 Vital Signs Vital Signs: Last Vital Signs Pulse 107 H 06/08/25 11:33 Resp 33 H 06/08/25 11:33 BP 147/122 H 06/08/25 11:33 Pulse Ox 73 L 06/08/25 11:33 O2 Del Method Room Air 06/08/25 11:33 FiO2 50 06/08/25 12:01 Weight: 90.718 kg Anesthesia Procedures Airway Patient Location: ED Urgency: emergent Start Time: 12:28 Stop Time: 12:39 Start Date: 06/08/25 Stop Date: 06/08/25 Anesthesiologist: Dr Miky Herrera SILO TENDER: Qing Lynch Performed by: AYO Preanesthetic Checklist: IV checked, risks and benefits discussed, monitors and equipment checked and pre-op evaluation Difficult Airway: No Indications for Airway Management: airway protection, hypercapnia, respiratory failure and cardiovascular instability Spontaneous Ventilation: present Sedation Level: deep Preoxygenated: Yes Mask Difficulty Assessment: 0 - not attempted Planned Trial Extubation: No Final Airway Type: endotracheal airway Number of Attempts at Approach: 1 Dentition Unchanged: Yes
[2025-06-08 13:02] LABS: PCR FLU A Negative PCR FLU A (Negative); PCR FLU B Negative PCR FLU B (Negative); PCR RSV Negative PCR RSV (Negative); SARS PCR* Negative SARS-CoV-2 (Negative)
[2025-06-08] MEDS: NORepinephrine INFUSION 4,000 MCG/250 ML PLAST..BAG 17.01 MCG IVPB (13:40)
--- NOTE | 2025-06-08 14:05 | RESP.RT ---
As noted earlier, pt unable to maintain respirations and began to tire out. VBG noted, CXR noted Decision to intubate was made. INtubated by ginnyshra with an 8.0 ETT secured at 24 at the lips. Pt with poor compliance and was difficult to hand ventilate at times. Sxing for moderate amounts of creamy sputum, sometimes blood tinged. Ventilation improved after suctioning. Transitioned PT to EMS vent, settings 50% with 5 peep, 5oocc VT, RR 16. In CMV mode. FIO2 reading 96% End tidal reading 55 mm hg. A higher peep may have been benificial, but without watching wave forms and sedation did not suggest this for transport. Pt turned over to EMS.
== END 2025-06-08 14:05 | disposition other institution (70) ==
PROVIDERS: Emergency Provider Family Medicine; PCP Family Medicine
DX: J81.1 Chronic pulmonary edema (principal); J96.01 Acute respiratory failure with hypoxia
CPT/HCPCS: 31500; 36415; 71045; 80048; 80076; 82803; 83605; 83880; 84484; 85025; 86140; 87631; 93005; 94660; 94761; 99285; 99291; J0330; J1938; J2704; J3010

== ENCOUNTER 2025-06-08 13:00 | Outpatient (CLI) | payer MEDICARE, SELFPAY | END 2025-06-08 13:01 | disposition home or self-care (01) | LOC: AMB 06-09 14:31 | PROVIDERS: PCP Family Medicine; Visit Provider Family Medicine | DX: J81.1 Chronic pulmonary edema (principal); J96.01 Acute respiratory failure with hypoxia | CPT/HCPCS: A0425; A0434 ==

== ENCOUNTER 2025-07-04 11:48 | Outpatient (CLI) | payer MEDICARE, SELFPAY | END 2025-07-04 11:49 | disposition home or self-care (01) | PROVIDERS: PCP Family Medicine; Visit Provider Family Medicine | DX: D64.9 Anemia, unspecified (principal); R31.9 Hematuria, unspecified | CPT/HCPCS: 82728; 83540; 87086 ==

== ENCOUNTER 2025-08-15 13:49 | Outpatient (CLI) | payer MEDICARE, SELFPAY | END 2025-08-15 13:50 | disposition home or self-care (01) | PROVIDERS: PCP Family Medicine; Visit Provider Family Medicine | DX: D64.9 Anemia, unspecified (principal); I50.9 Heart failure, unspecified | CPT/HCPCS: 80048; 83735 ==

== ENCOUNTER 2025-09-23 14:04 | Outpatient (CLI) | payer MEDICARE, SELFPAY | END 2025-09-23 14:05 | disposition home or self-care (01) | LOC: LKVREF 14:06 | PROVIDERS: PCP Family Medicine; Visit Provider Family Medicine | DX: I50.9 Heart failure, unspecified (principal) | CPT/HCPCS: 83880 ==